=== PATIENT | male | born 1945 | race Caucasian/White ===

== ENCOUNTER → 2017-04-16 | Outpatient (REF) | payer MEDICARE ==
[2017-04-16 12:16] LABS: ALBUMIN 3.4 GM/DL (3.2-5.2); ALBUMIN/GLOBULIN RATIO 1.21 (1.00-1.93); ALKALINE PHOSPHATASE 57 U/L (45-117); ALT/SGPT 18 U/L (12-78); ANION GAP 8 MEQ/L (8-16); AST/SGOT 14 U/L (15-37); BILIRUBIN,TOTAL 0.5 MG/DL (0.2-1.0); BLOOD UREA NITROGEN 12 MG/DL (7-18); CALCIUM LEVEL 8.9 MG/DL (8.8-10.2); CARBON DIOXIDE LEVEL 28 MEQ/L (21-32); CHLORIDE LEVEL 109 MEQ/L (98-107); CHOLESTEROL LEVEL 193 MG/DL (<200); CREATININE FOR GFR 0.96 MG/DL (0.70-1.30); GLOMERULAR FILTRATION RATE > 60.0 (>42); GLUCOSE, FASTING 90 MG/DL (83-110); POTASSIUM SERUM 4.4 MEQ/L (3.5-5.1); SODIUM LEVEL 145 MEQ/L (136-145); TOTAL PROTEIN 6.2 GM/DL (6.4-8.2); TRIGLYCERIDES LEVEL 92 MG/DL (<150)
== END ==
LOC: M SFHCCLAY 07:08
PROVIDERS: ATTEND Family Medicine
DX: E78.2 Mixed hyperlipidemia (principal); Z12.5 Encounter for screening for malignant neoplasm of prostate
CPT/HCPCS: 80053; 80061; G0103

== ENCOUNTER → 2017-11-10 | Outpatient (REF) | payer MEDICARE ==
[2017-11-10 11:33] LABS: BASO % 0.4 % (0.0-1.0); EOS # 0.2 10^3/uL (0.0-0.50); HEMATOCRIT 41.6 % (42.0-52.0); HEMOGLOBIN 13.4 g/dl (14.0-18.0); IMMATURE GRANULOCYTE % 0.2 % (0-3.0); LYMPH # 0.9 10^3/uL (1.5-4.5); LYMPH % 10.9 % (24.0-44.0); MEAN CORPUSCULAR HEMOGLOBIN 28.9 pg (27.0-33.0); MEAN CORPUSCULAR HGB CONC 32.2 g/dl (32.0-36.5); MEAN CORPUSCULAR VOLUME 89.7 fl (80.0-96.0); MONO # 0.7 10^3/uL (0.0-0.8); MONO % 8.9 % (0.0-5.0); NEUTROPHILS # 6.3 10^3/uL (1.8-7.7); NEUTROPHILS % 77.6 % (36.0-66.0); PLATELET COUNT, AUTOMATED 319 10^3/uL (150-450); RED BLOOD COUNT 4.64 10^6/uL (4.30-6.10); RED CELL DISTRIBUTION WIDTH 12.5 % (11.5-14.5); WHITE BLOOD COUNT 8.1 10^3/uL (4.0-10.0)
[2017-11-10 11:51] LABS: ALBUMIN 3.1 GM/DL (3.2-5.2); ALKALINE PHOSPHATASE 77 U/L (45-117); ALT/SGPT 16 U/L (12-78); ANION GAP 5 MEQ/L (8-16); AST/SGOT 13 U/L (7-37); BILIRUBIN,TOTAL 0.5 MG/DL (0.2-1.0); BLOOD UREA NITROGEN 13 MG/DL (7-18); C REACTIVE PROTEIN QUANTITATIV 2.81 MG/DL (0.00-0.30); CALCIUM LEVEL 9.1 MG/DL (8.8-10.2); CARBON DIOXIDE LEVEL 31 MEQ/L (21-32); CHLORIDE LEVEL 107 MEQ/L (98-107); CREATININE FOR GFR 1.05 MG/DL (0.70-1.30); GLOMERULAR FILTRATION RATE > 60.0 (>42); GLUCOSE, FASTING 90 MG/DL (70-100); POTASSIUM SERUM 4.5 MEQ/L (3.5-5.1); RHEUMATOID FACTOR QUANT < 10.0 IU/ML (<15.0); SODIUM LEVEL 143 MEQ/L (136-145); TOTAL PROTEIN 6.2 GM/DL (6.4-8.2)
[2017-11-10 12:06] LABS: ERYTHROCYTE SEDIMENTATION RATE 42 mm/hr (0-20)
[2017-11-11 14:13] LABS: ANTINUCLEAR ANTIBODIES DIRECT Negative (Negative)
== END ==
LOC: M SFHCCLAY 07:44
DX: M25.50 Pain in unspecified joint (principal)
CPT/HCPCS: 80053

== ENCOUNTER 2017-11-25 16:56 | Inpatient (IN) | payer MEDICARE ==
[2017-11-25] MEDS: MORPHINE 2 MG/ML 1ML SYRINGE (J2270) IV ×2 (19:48→22:00)
[2017-11-25] MEDS: ONDANSETRON 4MG/2ML VIAL (J2405) IV (19:48)
[2017-11-25 20:05] LABS: BASO % 0.2 % (0.0-1.0); EOS # 0.2 10^3/uL (0.0-0.50); EOS % 1.7 % (0.0-3.0); HEMATOCRIT 40.7 % (42.0-52.0); HEMOGLOBIN 13.8 g/dl (13.5-17.5); IMMATURE GRANULOCYTE % 0.3 % (0-3.0); LYMPH # 1.5 10^3/uL (1.5-4.5); MEAN CORPUSCULAR HEMOGLOBIN 29.6 pg (27.0-33.0); MEAN CORPUSCULAR HGB CONC 33.9 g/dl (32.0-36.5); MEAN CORPUSCULAR VOLUME 87.3 fl (80.0-96.0); MONO # 0.9 10^3/uL (0.0-0.8); MONO % 9.3 % (0.0-5.0); NEUTROPHILS # 7.3 10^3/uL (1.8-7.7); NEUTROPHILS % 73.5 % (36.0-66.0); PLATELET COUNT, AUTOMATED 256 10^3/uL (150-450); RED BLOOD COUNT 4.66 10^6/uL (4.30-6.10); RED CELL DISTRIBUTION WIDTH 12.7 % (11.5-14.5)
[2017-11-25 20:39] LABS: ERYTHROCYTE SEDIMENTATION RATE 43 mm/hr (0-20)
[2017-11-25 20:52] LABS: ANION GAP 6 MEQ/L (8-16); BLOOD UREA NITROGEN 10 MG/DL (7-18); C REACTIVE PROTEIN QUANTITATIV 6.29 MG/DL (0.00-0.30); CALCIUM LEVEL 8.7 MG/DL (8.8-10.2); CARBON DIOXIDE LEVEL 27 MEQ/L (21-32); CHLORIDE LEVEL 109 MEQ/L (98-107); CREATININE FOR GFR 0.83 MG/DL (0.70-1.30); GLOMERULAR FILTRATION RATE > 60.0 (>42); GLUCOSE, FASTING 106 MG/DL (70-100); POTASSIUM SERUM 4.1 MEQ/L (3.5-5.1); SODIUM LEVEL 142 MEQ/L (136-145)
[2017-11-25] MEDS ORDERED: ISOVUE-370 76% 100ML VIAL (Q9967) As Ordered (21:23)
[2017-11-25] MEDS: NS 1,000 ML IV (23:35)
[2017-11-25 23:37] LABS: INR 1.11; PROTHROMBIN TIME 14.5 SECONDS (12.4-14.5)
[2017-11-25] MEDS ORDERED: ONDANSETRON 4 MG TAB (S0181) PO (23:45)
[2017-11-26 00:27] LABS: HEMATOCRIT 40.7 % (42.0-52.0); HEMOGLOBIN 13.5 g/dl (13.5-17.5)
[2017-11-26 04:45] LABS: HEMATOCRIT 39.8 % (42.0-52.0)
[2017-11-26 06:45] LABS: BASO % 0.2 % (0.0-1.0); EOS # 0.2 10^3/uL (0.0-0.50); HEMATOCRIT 38.2 % (42.0-52.0); HEMOGLOBIN 12.6 g/dl (13.5-17.5); IMMATURE GRANULOCYTE % 0.4 % (0-3.0); MEAN CORPUSCULAR HEMOGLOBIN 28.8 pg (27.0-33.0); MEAN CORPUSCULAR VOLUME 87.2 fl (80.0-96.0); MONO # 0.8 10^3/uL (0.0-0.8); MONO % 9.9 % (0.0-5.0); NEUTROPHILS # 6.3 10^3/uL (1.8-7.7); NEUTROPHILS % 75.5 % (36.0-66.0); PLATELET COUNT, AUTOMATED 240 10^3/uL (150-450); RED BLOOD COUNT 4.38 10^6/uL (4.30-6.10); RED CELL DISTRIBUTION WIDTH 12.6 % (11.5-14.5); WHITE BLOOD COUNT 8.3 10^3/uL (4.0-10.0)
[2017-11-26 06:59] LABS: ANION GAP 2 MEQ/L (8-16); BLOOD UREA NITROGEN 11 MG/DL (7-18); CALCIUM LEVEL 8.5 MG/DL (8.8-10.2); CARBON DIOXIDE LEVEL 30 MEQ/L (21-32); CHLORIDE LEVEL 106 MEQ/L (98-107); CREATININE FOR GFR 0.86 MG/DL (0.70-1.30); GLOMERULAR FILTRATION RATE > 60.0 (>42); GLUCOSE, FASTING 99 MG/DL (70-100); POTASSIUM SERUM 4.1 MEQ/L (3.5-5.1); SODIUM LEVEL 138 MEQ/L (136-145)
[2017-11-26 07:08] LABS: ERYTHROCYTE SEDIMENTATION RATE 41 mm/hr (0-20)
[2017-11-26] MEDS: NS 1,000 ML IV ×2 (09:40→19:35)
[2017-11-26 09:41] LABS: HEMATOCRIT 37.7 % (42.0-52.0); HEMOGLOBIN 12.4 g/dl (13.5-17.5)
[2017-11-26] MEDS ORDERED: ISOVUE-300 61% 50ML VIAL (Q9967) As Ordered (11:04)
[2017-11-26] MEDS ORDERED: HEPARIN 1,000 UNITS/ML 10ML VIAL (FOR RADIOLOGY& DIALYSIS ONLY) As Ordered (11:04)
[2017-11-26] MEDS ORDERED: fentaNYL 100 MCG/2 ML INJECTION (J3010) As Ordered ×2 (11:20→11:40)
[2017-11-26] MEDS ORDERED: MIDAZOLAM INJ 2 MG/2 ML VIAL (J2250) As Ordered ×2 (11:21→11:41)
[2017-11-26 14:01] LABS: HEMATOCRIT 39.4 % (42.0-52.0); HEMOGLOBIN 12.6 g/dl (13.5-17.5)
[2017-11-26 18:25] LABS: HEMOGLOBIN 12.4 g/dl (13.5-17.5)
[2017-11-26] MEDS: MORPHINE 4 MG/ML 1ML VIAL/SYRINGE (J2270) IV ×2 (20:09→23:42)
[2017-11-26 22:27] LABS: HEMATOCRIT 36.1 % (42.0-52.0); HEMOGLOBIN 11.7 g/dl (13.5-17.5)
[2017-11-27] MEDS: PERCOCET 5MG/325MG TAB PO ×5 (03:00→20:33)
[2017-11-27 03:04] LABS: BASO % 0.2 % (0.0-1.0); EOS # 0.2 10^3/uL (0.0-0.50); EOS % 2.6 % (0.0-3.0); HEMATOCRIT 38.9 % (42.0-52.0); HEMOGLOBIN 12.6 g/dl (13.5-17.5); IMMATURE GRANULOCYTE % 0.3 % (0-3.0); LYMPH # 1.6 10^3/uL (1.5-4.5); MEAN CORPUSCULAR HEMOGLOBIN 28.5 pg (27.0-33.0); MEAN CORPUSCULAR HGB CONC 32.4 g/dl (32.0-36.5); MONO # 0.9 10^3/uL (0.0-0.8); MONO % 10.5 % (0.0-5.0); NEUTROPHILS # 5.8 10^3/uL (1.8-7.7); NEUTROPHILS % 67.4 % (36.0-66.0); PLATELET COUNT, AUTOMATED 222 10^3/uL (150-450); RED BLOOD COUNT 4.42 10^6/uL (4.30-6.10); RED CELL DISTRIBUTION WIDTH 12.7 % (11.5-14.5); WHITE BLOOD COUNT 8.6 10^3/uL (4.0-10.0)
[2017-11-27 03:33] LABS: ANION GAP 4 MEQ/L (8-16); BLOOD UREA NITROGEN 16 MG/DL (7-18); CALCIUM LEVEL 8.4 MG/DL (8.8-10.2); CARBON DIOXIDE LEVEL 29 MEQ/L (21-32); CHLORIDE LEVEL 108 MEQ/L (98-107); CREATININE FOR GFR 0.93 MG/DL (0.70-1.30); GLOMERULAR FILTRATION RATE > 60.0 (>42); GLUCOSE, FASTING 93 MG/DL (70-100); SODIUM LEVEL 141 MEQ/L (136-145)
[2017-11-27 04:38] LABS: ERYTHROCYTE SEDIMENTATION RATE 20 mm/hr (0-20)
[2017-11-27] MEDS: NS 1,000 ML IV (05:35)
[2017-11-27] MEDS: MORPHINE 4 MG/ML 1ML VIAL/SYRINGE (J2270) IV ×4 (06:33→13:06)
[2017-11-27] MEDS ORDERED: PROHANCE 279.3MG/ML 15ML VIAL (A9576) As Ordered (12:19)
[2017-11-27] MEDS: DOCUSATE SODIUM 100 MG CAP PO (20:34)
[2017-11-28 00:21] LABS: Lyme Disease IgG/IgM Antibodie <0.91 ISR (0.00-0.90); Lyme Disease IgM Ab Quantitati <0.80 index (0.00-0.79)
[2017-11-28] MEDS: PERCOCET 5MG/325MG TAB PO ×5 (05:32→23:54)
[2017-11-28 06:11] LABS: BASO % 0.2 % (0.0-1.0); EOS # 0.2 10^3/uL (0.0-0.50); EOS % 2.9 % (0.0-3.0); HEMATOCRIT 37.9 % (42.0-52.0); HEMOGLOBIN 12.4 g/dl (13.5-17.5); IMMATURE GRANULOCYTE % 0.4 % (0-3.0); LYMPH # 1.3 10^3/uL (1.5-4.5); LYMPH % 15.9 % (24.0-44.0); MEAN CORPUSCULAR HEMOGLOBIN 29.2 pg (27.0-33.0); MEAN CORPUSCULAR HGB CONC 32.7 g/dl (32.0-36.5); MEAN CORPUSCULAR VOLUME 89.2 fl (80.0-96.0); MONO # 0.8 10^3/uL (0.0-0.8); MONO % 10.2 % (0.0-5.0); NEUTROPHILS # 5.7 10^3/uL (1.8-7.7); NEUTROPHILS % 70.4 % (36.0-66.0); PLATELET COUNT, AUTOMATED 246 10^3/uL (150-450); RED BLOOD COUNT 4.25 10^6/uL (4.30-6.10); RED CELL DISTRIBUTION WIDTH 12.6 % (11.5-14.5); WHITE BLOOD COUNT 8.1 10^3/uL (4.0-10.0)
[2017-11-28 06:33] LABS: ANION GAP 5 MEQ/L (8-16); BLOOD UREA NITROGEN 15 MG/DL (7-18); CALCIUM LEVEL 8.4 MG/DL (8.8-10.2); CARBON DIOXIDE LEVEL 30 MEQ/L (21-32); CHLORIDE LEVEL 107 MEQ/L (98-107); CREATININE FOR GFR 0.85 MG/DL (0.70-1.30); GLOMERULAR FILTRATION RATE > 60.0 (>42); GLUCOSE, FASTING 91 MG/DL (70-100); POTASSIUM SERUM 3.9 MEQ/L (3.5-5.1); SODIUM LEVEL 142 MEQ/L (136-145)
[2017-11-28 07:09] LABS: ERYTHROCYTE SEDIMENTATION RATE 63 mm/hr (0-20)
[2017-11-28] MEDS ORDERED: ISOVUE-370 76% 100ML VIAL (Q9967) As Ordered (07:48)
[2017-11-28 10:17] LABS: ALPHA FETOPROTEIN TUMOR QUANT < 1.3 NG/ML (<8.1)
[2017-11-28 10:18] LABS: LDH LACTATE DEHYDROGENASE 114 U/L (87-241)
[2017-11-28] MEDS: DOCUSATE SODIUM 100 MG CAP PO ×2 (10:29→20:54)
[2017-11-28] MEDS ORDERED: LIDOCAINE 1% MDV 20ML VIAL As Ordered (13:56)
[2017-11-28] MEDS ORDERED: SLF 3 ML SYR IV (15:30)
[2017-11-28] MEDS: SLF 3 ML SYR IV (20:54)
[2017-11-28] MEDS: MORPHINE 4 MG/ML 1ML VIAL/SYRINGE (J2270) IV (23:36)
[2017-11-29] MEDS: MORPHINE 4 MG/ML 1ML VIAL/SYRINGE (J2270) IV (02:45)
[2017-11-29 04:56] LABS: BASO % 0.1 % (0.0-1.0); EOS # 0.2 10^3/uL (0.0-0.50); EOS % 2.6 % (0.0-3.0); HEMATOCRIT 34.8 % (42.0-52.0); HEMOGLOBIN 11.4 g/dl (13.5-17.5); IMMATURE GRANULOCYTE % 0.3 % (0-3.0); LYMPH % 13.5 % (24.0-44.0); MEAN CORPUSCULAR HEMOGLOBIN 28.4 pg (27.0-33.0); MEAN CORPUSCULAR HGB CONC 32.8 g/dl (32.0-36.5); MEAN CORPUSCULAR VOLUME 86.6 fl (80.0-96.0); MONO # 0.7 10^3/uL (0.0-0.8); MONO % 9.3 % (0.0-5.0); NEUTROPHILS # 5.3 10^3/uL (1.8-7.7); NEUTROPHILS % 74.2 % (36.0-66.0); PLATELET COUNT, AUTOMATED 251 10^3/uL (150-450); RED BLOOD COUNT 4.02 10^6/uL (4.30-6.10); RED CELL DISTRIBUTION WIDTH 12.4 % (11.5-14.5); WHITE BLOOD COUNT 7.2 10^3/uL (4.0-10.0)
[2017-11-29 05:16] LABS: ANION GAP 6 MEQ/L (8-16); BLOOD UREA NITROGEN 10 MG/DL (7-18); CALCIUM LEVEL 8.2 MG/DL (8.8-10.2); CARBON DIOXIDE LEVEL 28 MEQ/L (21-32); CHLORIDE LEVEL 108 MEQ/L (98-107); GLOMERULAR FILTRATION RATE > 60.0 (>42); GLUCOSE, FASTING 100 MG/DL (70-100); POTASSIUM SERUM 3.7 MEQ/L (3.5-5.1); SODIUM LEVEL 142 MEQ/L (136-145)
[2017-11-29 05:44] LABS: ERYTHROCYTE SEDIMENTATION RATE 52 mm/hr (0-20)
[2017-11-29] MEDS: SLF 3 ML SYR IV ×2 (06:00→12:27)
[2017-11-29] MEDS: PERCOCET 5MG/325MG TAB PO ×2 (06:34→10:28)
[2017-11-29] MEDS: DOCUSATE SODIUM 100 MG CAP PO (08:21)
[2017-11-29] MEDS ORDERED: BISACODYL 10 MG SUPP PR (11:30)
[2017-11-29] MEDS: ACETAMINOPHEN TAB 650MG DOSE (2X325MG) PO (13:30)
[2017-11-29 14:11] LABS: HCG SERUM TUMOR MARKER QUANT < 1 mIU/mL (0-3)
== END 2017-11-29 13:35 | disposition home or self-care (01) | DRG 843 ==
LOC: M PCU 11-26 16:45 → M ED 16:56 → M ED INP 22:39
PROC: B41DYZZ Fluoroscopy of Aorta and Bilateral Lower Extremity Arteries using Other Contrast (ICD-10-PCS; 2017-11-26)
PROC: B41CYZZ Fluoroscopy of Pelvic Arteries using Other Contrast (ICD-10-PCS; 2017-11-26)
PROC: 0WBH3ZX Excision of Retroperitoneum, Percutaneous Approach, Diagnostic (ICD-10-PCS; principal; 2017-11-28)
DX: C48.0 Malignant neoplasm of retroperitoneum (principal); K66.1 Hemoperitoneum; Z79.899 Other long term (current) drug therapy; Z88.0 Allergy status to penicillin; Z91.040 Latex allergy status; Z79.82 Long term (current) use of aspirin; Z85.038 Personal history of other malignant neoplasm of large intestine; Z91.018 Allergy to other foods

== ENCOUNTER → 2018-06-10 | Outpatient (REF) | payer MEDICARE ==
[2018-06-10 17:27] LABS: BASO % 0.5 % (0.0-1.0); EOS # 0.1 10^3/uL (0.0-0.50); EOS % 2.3 % (0.0-3.0); HEMATOCRIT 42.7 % (42.0-52.0); HEMOGLOBIN 13.7 g/dl (13.5-17.5); IMMATURE GRANULOCYTE % 0.2 % (0-3.0); LYMPH # 0.4 10^3/uL (1.5-4.5); LYMPH % 9.2 % (24.0-44.0); MEAN CORPUSCULAR HEMOGLOBIN 29.5 pg (27.0-33.0); MEAN CORPUSCULAR HGB CONC 32.1 g/dl (32.0-36.5); MONO # 0.4 10^3/uL (0.0-0.8); NEUTROPHILS # 3.5 10^3/uL (1.8-7.7); NEUTROPHILS % 79.8 % (36.0-66.0); PLATELET COUNT, AUTOMATED 221 10^3/uL (150-450); RED BLOOD COUNT 4.64 10^6/uL (4.30-6.10); RED CELL DISTRIBUTION WIDTH 13.5 % (11.5-14.5); WHITE BLOOD COUNT 4.4 10^3/uL (4.0-10.0)
[2018-06-10 17:33] LABS: ANION GAP 5 MEQ/L (8-16); BLOOD UREA NITROGEN 11 MG/DL (7-18); CALCIUM LEVEL 9.1 MG/DL (8.8-10.2); CARBON DIOXIDE LEVEL 30 MEQ/L (21-32); CHLORIDE LEVEL 105 MEQ/L (98-107); CREATININE FOR GFR 0.85 MG/DL (0.70-1.30); GLOMERULAR FILTRATION RATE > 60.0 (>42); GLUCOSE, FASTING 97 MG/DL (70-100); POTASSIUM SERUM 4.5 MEQ/L (3.5-5.1); SODIUM LEVEL 140 MEQ/L (136-145)
== END ==
LOC: M LABDRAWC 10:21
DX: R19.00 Intra-abdominal and pelvic swelling, mass and lump, unspecified site (principal)
CPT/HCPCS: 80048

== ENCOUNTER → 2018-10-30 | Outpatient (REF) | payer MEDICARE ==
[~2018-10-30] MED LIST: ASPI325T PO; BISA10SU PR; COLA100C5 PO; PERCOCET PO; TYLE500T78 PO
[2018-10-30 13:50] LABS: BLOOD UREA NITROGEN 14 MG/DL (7-18); CREATININE FOR GFR 0.96 MG/DL (0.70-1.30); GLOMERULAR FILTRATION RATE > 60.0 (>42)
== END ==
LOC: M LABDRAWC 12:25
PROVIDERS: ATTEND Surgery
DX: R19.00 Intra-abdominal and pelvic swelling, mass and lump, unspecified site (principal); C49.9 Malignant neoplasm of connective and soft tissue, unspecified

== ENCOUNTER → 2018-12-11 | Outpatient (REF) | payer MEDICARE ==
[~2018-12-11] MED LIST changes: +ASPI-1 PO; -ASPI325T PO
[2018-12-11 11:40] LABS: BLOOD UREA NITROGEN 12 MG/DL (7-18); CREATININE FOR GFR 0.89 MG/DL (0.70-1.30); GLOMERULAR FILTRATION RATE > 60.0 (>42)
== END ==
LOC: M LABDRAWC 11:05
PROVIDERS: ATTEND Orthopaedic Surgery
DX: M25.461 Effusion, right knee (principal)

== ENCOUNTER → 2019-04-05 | Outpatient (REF) | payer MEDICARE ==
[2019-04-05 11:41] LABS: BLOOD UREA NITROGEN 12 MG/DL (7-18); GLOMERULAR FILTRATION RATE > 60.0 (>42)
== END ==
LOC: M LABDRAWC 11:21
PROVIDERS: ATTEND Surgery
DX: R19.00 Intra-abdominal and pelvic swelling, mass and lump, unspecified site (principal)

== ENCOUNTER → 2019-10-28 | Outpatient (REF) | payer MEDICARE ==
[2019-10-28 13:09] LABS: BLOOD UREA NITROGEN 14 MG/DL (7-18); CREATININE FOR GFR 1.02 MG/DL (0.70-1.30); GLOMERULAR FILTRATION RATE > 60.0 (>42)
== END ==
LOC: M LABDRAWC 11:26
PROVIDERS: ATTEND Surgery
DX: C49.9 Malignant neoplasm of connective and soft tissue, unspecified (principal); R19.00 Intra-abdominal and pelvic swelling, mass and lump, unspecified site

== ENCOUNTER → 2020-05-05 | Outpatient (REF) | payer MEDICARE ==
[2020-05-05 14:38] LABS: BLOOD UREA NITROGEN 11 MG/DL (7-18); CREATININE FOR GFR 0.98 MG/DL (0.70-1.30); GLOMERULAR FILTRATION RATE > 60.0 (>42)
== END ==
LOC: M LABDRAWC 11:57
PROVIDERS: ATTEND Surgery
DX: R19.00 Intra-abdominal and pelvic swelling, mass and lump, unspecified site (principal)

== ENCOUNTER → 2020-12-22 | Outpatient (CLI) | payer MEDICARE ==
[~2020-12-22] MED LIST changes: +GASTROGRAFIN SOLUTION 30ML (Q9963) As Ordered ONE; +ISOVUE-370 76% 100ML VIAL As Ordered ONE
--- NOTE | 2020-12-22 17:54 | REP ---
INDICATION: MAL MICHA OF ABD. COMPARISON: 11/25/2017 the only prior TECHNIQUE: Standard helical technique after the intravenous administration of 100 cc Isovue 370 and oral bowel preparatory contrast administration FINDINGS: There are a few scattered low-density lesions in the liver likely tiny cysts or focal fatty deposits. There are no enhancing hepatic lesions. The gallbladder, spleen, pancreas, adrenal glands, and kidneys are within normal limits. The abdominal aorta and para-aortic regions are within normal limits. There is in for a renal abdominal aortic focal ectasias without aneurysmal dilatation. This is essentially unchanged compared to the prior exam. The bowel loops and the mesenteries are within normal limits. Previously present large right psoas muscle mass has been surgically excised. There is no evidence of residual mass or abnormal paraspinal enhancement. There is no free fluid or free air. Postsurgical changes seen along the right lateral abdominal wall. Bone window technique throughout the exam shows no significant change in appearance of the imaged osseous structures. IMPRESSION: There is no evidence of acute or recurrent disease. Findings as described above. <Electronically signed by Marcus Sky > 12/22/20 [id number]
--- NOTE | 2020-12-22 17:57 | REP ---
INDICATION: MAL MICHA OF ABD COMPARISON: 11/28/2017 the latest prior TECHNIQUE: Standard helical technique after the intravenous administration of 100 cc Isovue 370. FINDINGS: There is no mediastinal or hilar adenopathy. There are no pleural or pericardial effusions. The imaged osseous structures are essentially unchanged. Evaluation of the lung meier shows no new abnormal nodules, masses, or opacities. A few scattered areas of fibrosis and/or subsegmental atelectatic change is again suspected status quo. IMPRESSION: No acute intrathoracic disease. No significant change from the prior exam. <Electronically signed by Marcus Sky > 12/22/20 1206
== END ==
LOC: M RAD 15:51
PROVIDERS: ATTEND Surgery
DX: R19.00 Intra-abdominal and pelvic swelling, mass and lump, unspecified site (principal); C76.2 Malignant neoplasm of abdomen
CPT/HCPCS: 71260; 74177; Q9963; Q9967

== ENCOUNTER → 2021-05-30 | Outpatient (REF) | payer MEDICARE ==
[~2021-05-30] MED LIST changes: +ASPI81CH8 PO; +CALCD50TA PO; -GASTROGRAFIN SOLUTION 30ML (Q9963) As Ordered ONE; +IBUP200C28 PO; -ISOVUE-370 76% 100ML VIAL As Ordered ONE
[2021-05-30 16:55] LABS: BLOOD UREA NITROGEN 15 MG/DL (7-18); CREATININE FOR GFR 1.03 MG/DL (0.70-1.30); GLOMERULAR FILTRATION RATE > 60.0 (>42)
== END ==
LOC: M LABDRAWC 15:46
PROVIDERS: ATTEND Surgery
DX: R19.00 Intra-abdominal and pelvic swelling, mass and lump, unspecified site (principal); C76.2 Malignant neoplasm of abdomen
CPT/HCPCS: 36415; 82565; 84520; 90682; 90732; G0008; G0009; G0463

== ENCOUNTER 2021-06-16 21:52 | Inpatient (IN) | payer MEDICARE ==
[~2021-06-16] VITALS: Ht 167.6 cm; Wt 69.5 kg
[~2021-06-16 21:52] MED LIST changes: -ASPI81CH8 PO; -CALCD50TA PO; -IBUP200C28 PO
[2021-06-16] MEDS ORDERED: IBUP200C28 PO (22:02)
--- NOTE | 2021-06-16 23:34 | REPVR ---
PROCEDURE INFORMATION: Exam: XR Right Knee Exam date and time: 06/16/2021 10:59 PM Age: 76 years old Clinical indication: Other: Patient fell; Additional info: Fell striking right knee TECHNIQUE: Imaging protocol: XR Right knee. Views: 4 or more views. COMPARISON: No relevant prior studies available. FINDINGS: Bones/joints: Osteopenia. Distracted avulsion fracture from the lower pole of the patella which is by approximately 14 mm. Soft tissues: Soft tissue swelling and hematoma about the anterior aspect of the patella and knee. IMPRESSION: 1. Distracted avulsion fracture from the lower pole of the patella which is distracted approximately 14 mm. 2. Soft tissue swelling and hematoma about the anterior aspect of the patella and knee. 3. Osteopenia. Electronically signed by: Tyler Bhatti On 06/16/2021 23:33:26 PM
--- NOTE | 2021-06-16 23:36 | REPVR ---
PROCEDURE INFORMATION: Exam: XR Right Femur Exam date and time: 06/16/2021 11:08 PM Age: 76 years old Clinical indication: Pain; Knee; Right; Additional info: Fall TECHNIQUE: Imaging protocol: XR Right femur. Views: 2 views. COMPARISON: CR Knee, complete RIGHT 06/16/2021 10:53 PM FINDINGS: Bones/joints: Osteopenia. No femoral fracture. Distracted fracture from the lower pole of the patella. Soft tissues: Soft tissue swelling and hematoma about the anterior aspect of the knee. IMPRESSION: 1. Osteopenia. 2. Distracted fracture from the lower pole of the patella with adjacent soft tissue swelling and hematoma about the anterior aspect of the knee. 3. Otherwise negative right femur. Electronically signed by: Tyler Bhatti On 06/16/2021 23:35:28 PM
--- NOTE | 2021-06-16 23:37 | REPVR ---
PROCEDURE INFORMATION: Exam: XR Right Tibia and Fibula Exam date and time: 06/16/2021 11:08 PM Age: 76 years old Clinical indication: Pain; Knee; Right; Additional info: Fall TECHNIQUE: Imaging protocol: XR Right tibia and fibula. Views: 2 views. COMPARISON: CR Knee, complete RIGHT 06/16/2021 10:53 PM FINDINGS: Bones/joints: Osteopenia. Distracted fracture from the lower pole of the patella. The tibia and fibula are intact. Soft tissues: Soft tissue swelling and hematoma anterior to the knee. IMPRESSION: 1. Distracted fracture from the lower pole of the patella with adjacent anterior soft tissue swelling and hematoma. 2. Osteopenia. 3. Otherwise negative right tibia and fibula. Electronically signed by: Tyler Bhatti On 06/16/2021 23:36:31 PM
--- NOTE | 2021-06-17 00:16 | REPVR ---
PROCEDURE INFORMATION: Exam: CT Right Lower Extremity Without Contrast, Knee Exam date and time: 06/16/2021 11:59 PM Age: 76 years old Clinical indication: Injury or trauma; Fall; Fracture, traumatic; Displaced; Patella or knee; Right; Additional info: 3d recon, fall patellar fracture TECHNIQUE: Imaging protocol: CT of the Right lower extremity without contrast was performed. Exam focused on the knee. Radiation optimization: All CT scans at this facility use at least one of these dose optimization techniques: automated exposure control; mA and/or kV adjustment per patient size (includes targeted exams where dose is matched to clinical indication); or iterative reconstruction. COMPARISON: CR Knee, complete RIGHT 06/16/2021 10:53 PM FINDINGS: Bones/joints: Distracted fracture from the lower pole of the patella which is distracted approximately 15 mm. The cruciate ligaments are intact. The medial collateral ligament appears to be intact. No fractures of the femur, tibia or fibula are noted. Trace joint effusion. Soft tissues: Subcutaneous confluence around the anterior aspect of the knee which may reflect hemorrhagic infiltration and hematoma. IMPRESSION: 1. Distracted fracture from the lower pole of the patella which is distracted approximately 15 mm. 2. Subcutaneous infiltration and confluence about the anterior aspect of the knee which may reflect hematoma and hemorrhagic infiltration. 3. Trace joint effusion. 4. Otherwise negative CT right knee. Electronically signed by: Tyler Bhatti On 06/17/2021 00:16:03 AM
--- NOTE | 2021-06-17 00:56 | HPEPDOC ---
[facility] Medical History & Physical Date of Admission Jun 17, 2021 Date of Service: Jun 17, 2021 Primary Care Physician: JARROD DEL VALLE DO Attending Physician: SHERRI VERMA MD History and Physical TIME OF SERVICE: 120AM CHIEF COMPLAINT: knee pain HISTORY OF PRESENT ILLNESS: , a 76 yr old M, received his 3rd dose of Modernas COVID 19 vaccine on Friday; shortly thereafter he developed left leg pain and weakness. As a result of the weakness he spent most of the last few days in bed. Despite having a poor appetite he has been forcing himself to eat. He denies having n/v/d, dizziness or chest pain. Yesterday he felt a bit stronger so he tried to get up and walk but was still weak. His left leg buckled out from underneath him and as a result he fell down onto his right knee. He came to the hospital because his daughters insisted he come in for evaluation. He was found to have a right closed patellar fracture and declined CT of the head to r/o CVA. At the time of my evaluation he denied having severe knee pain. REVIEW OF SYSTEMS: 10-point review of systems negative except as listed in HPI PAST MEDICAL/ SURGICAL HISTORY: osteopenia, history of colon cancer in remission, history of right pelvis sarcoma (diagnosed in 2018 in remission), bilateral cataract surgery, tonsillectomy, left arm surgery FAMILY HISTORY: Alcohol abuse SOCIAL HISTORY: He doesnt smoke, he has a history of alcohol dependence and quit drinking in May of 1984 ALLERGIES: Please see below. HOME MEDICATIONS: Please see below. PHYSICAL EXAMINATION: Vital Signs Date Time Temp Pulse Resp B/P (MAP) Pulse Ox O2 Delivery O2 Flow Rate FiO2 06/16/21 21:53 96.8 58 18 135/60 (85) 99 Room Air GENERAL APPEARANCE: well-nourished and developed/ NAD HEENT: EOMI / MMM&P CARDIOVASCULAR: RRR/NMRG LUNGS: CTAB on RA ABDOMEN: contour flat MUSCULOSKELETAL: NCAT / right knee swollen INTEGUMENT: he is not flushed pale or diaphoretic NEUROLOGICAL: CN 2-12 grossly intact / speech not dysarthric PSYCHIATRIC: A&O / able to understand and follow all commands LABORATORY DATA: 06/16/21 00:55 IMAGING: Right Knee xray IMPRESSION: 1. Distracted avulsion fracture from the lower pole of the patella which is distracted approximately 14 mm. 2. Soft tissue swelling and hematoma about the anterior aspect of the patella and knee. 3. Osteopenia. Right Femur xray IMPRESSION: 1. Osteopenia. 2. Distracted fracture from the lower pole of the patella with adjacent soft tissue swelling and hematoma about the anterior aspect of the knee. 3. Otherwise negative right femur. Right Tib/Fib xray IMPRESSION: 1. Distracted fracture from the lower pole of the patella with adjacent anterior soft tissue swelling and hematoma. 2. Osteopenia. 3. Otherwise negative right tibia and fibula. Right knee CT IMPRESSION: 1. Distracted fracture from the lower pole of the patella which is distracted approximately 15 mm. 2. Subcutaneous infiltration and confluence about the anterior aspect of the knee which may reflect hematoma and hemorrhagic infiltration. 3. Trace joint effusion. 4. Otherwise negative CT right knee. MICROBIOLOGY: COVID 19 neg ASSESSMENT: is a 76 yr old M w a hx of osteopenia & right pelvis sarcoma who is admitted for a right closed patellar fracture. PLAN: 1 Right Patellar Fracture 2/2 mechanical fall Plan: NPO after midnight w D5NS and FSBS q6H / Ortho consult / PT consult / pain control w Morphine w stool softeners/ his RCRI score is 0, the only additional testing he will need prior to proceeding with surgery is to check his pro-BNP 2 Osteopenia -suspect he may have Osteoporosis Plan: f/u Ca and Vitamin D / OscaL D / he can f/u with his PCP for a DEXA Scan 3 Hx of Pelvis Sarcoma Plan: he is scheduled for PET? CT on Friday DVT px w SCDs Disposition: ARU vs home after more than 2 midnights stay Home Medications Scheduled PRN Ibuprofen (Ibuprofen) 200 Mg Capsule, 600 MG PO Q8H PRN for MODERATE PAIN Allergies Coded Allergies: Penicillins (Verified Allergy, Unknown, HIVES, 06/17/21) corn (Verified Allergy, Unknown, 06/17/21) A-FIB/CHADSVASC A-FIB History Current/History of A-Fib/PAF?: No Current PO Anticoag Therapy: No SHERRI VERMA MD Jun 17, 2021 00:56
[2021-06-17] MEDS ORDERED: MORPHINE 2 MG/ML 1ML VIAL (J2270) IV PRN (01:00)
[2021-06-17] MEDS ORDERED: HOME MED LIST COMPLETE! XX SCH (01:00)
[2021-06-17] MEDS ORDERED: MAALOX 30 ML SUSP *UDC PO PRN (01:00)
[2021-06-17] MEDS ORDERED: MOM 30ML SUSPENSION UDC PO PRN (01:00)
[2021-06-17 01:31] LABS: BASO % 0.4 % (0.0-1.0); EOS # 0.2 10^3/uL (0.0-0.5); EOS % 2.6 % (0.0-3.0); HEMATOCRIT 46.3 % (42.0-52.0); HEMOGLOBIN 14.9 g/dl (13.5-17.5); LYMPH # 0.8 10^3/uL (1.5-5.0); MEAN CORPUSCULAR HEMOGLOBIN 30.5 pg (27.0-33.0); MEAN CORPUSCULAR HGB CONC 32.2 g/dl (32.0-36.5); MEAN CORPUSCULAR VOLUME 94.9 fl (80.0-96.0); MONO # 0.8 10^3/uL (0.0-0.8); MONO % 8.9 % (2.0-8.0); NEUTROPHILS # 6.7 10^3/uL (1.5-8.5); NEUTROPHILS % 78.6 % (36.0-66.0); PLATELET COUNT, AUTOMATED 215 10^3/uL (150-450); RED BLOOD COUNT 4.88 10^6/uL (4.30-6.10); WHITE BLOOD COUNT 8.5 10^3/uL (4.0-10.0)
[2021-06-17 01:48] LABS: INR 0.99; PROTHROMBIN TIME 13.5 SECONDS (12.7-14.5)
[2021-06-17 01:49] LABS: PARTIAL THROMBOPLASTIN TIME 28.7 SECONDS (25.9-37.0)
[2021-06-17 01:51] LABS: ALBUMIN 3.3 GM/DL (3.2-5.2); ALT/SGPT 19 U/L (12-78); BILIRUBIN,DIRECT 0.2 MG/DL (0.0-0.2); BILIRUBIN,TOTAL 0.6 MG/DL (0.2-1.0); BLOOD UREA NITROGEN 17 MG/DL (7-18); CARBON DIOXIDE LEVEL 30 MEQ/L (21-32); CHLORIDE LEVEL 107 MEQ/L (98-107); CK-MB VALUE MASS 1.1 NG/ML (<3.6); CPK CREATINE PHOSPHOKINASE 23 U/L (39-308); CREATININE FOR GFR 0.95 MG/DL (0.70-1.30); GLOMERULAR FILTRATION RATE > 60.0 (>42); GLUCOSE, FASTING 102 MG/DL (70-100); MB/CK RELATIVE INDEX 4.78 (< OR =4); SODIUM LEVEL 141 MEQ/L (136-145); TOTAL PROTEIN 6.1 GM/DL (6.4-8.2); TROPONIN I < 0.02 NG/ML (< 0.10)
[2021-06-17] MEDS: D5W/0.9% SODIUM CHLORIDE 1,000 ML IV SCH ×2 (06:41→16:34)
[2021-06-17 06:58] LABS: HEMATOCRIT 40.9 % (42.0-52.0); HEMOGLOBIN 13.3 g/dl (13.5-17.5); MEAN CORPUSCULAR HEMOGLOBIN 30.5 pg (27.0-33.0); MEAN CORPUSCULAR HGB CONC 32.5 g/dl (32.0-36.5); MEAN CORPUSCULAR VOLUME 93.8 fl (80.0-96.0); PLATELET COUNT, AUTOMATED 185 10^3/uL (150-450); RED BLOOD COUNT 4.36 10^6/uL (4.30-6.10); WHITE BLOOD COUNT 6.5 10^3/uL (4.0-10.0)
[2021-06-17] MEDS ORDERED: fentaNYL 100 MCG/2 ML INJECTION (J3010) IV PRN ×2 (07:01→13:05)
[2021-06-17] MEDS ORDERED: MIDAZOLAM INJ 2MG/2ML VIAL (J2250 PER 1MG) IV PRN (07:01)
[2021-06-17 08:10] LABS: BLOOD UREA NITROGEN 16 MG/DL (7-18); CALCIUM LEVEL 8.5 MG/DL (8.8-10.2); CARBON DIOXIDE LEVEL 30 MEQ/L (21-32); CHLORIDE LEVEL 109 MEQ/L (98-107); CREATININE FOR GFR 0.84 MG/DL (0.70-1.30); GLOMERULAR FILTRATION RATE > 60.0 (>42); GLUCOSE, FASTING 101 MG/DL (70-100); NT-PRO BNP 158 PG/ML (<450); POTASSIUM SERUM 3.9 MEQ/L (3.5-5.1); SODIUM LEVEL 142 MEQ/L (136-145)
--- NOTE | 2021-06-17 08:56 | IPNPDOC ---
Text Note Date of Service The patient was seen on 06/17/21. NOTE SUBJECTIVE: -No acute events overnight, pending going to the OR shortly OBJECTIVE: GENERAL APPEARANCE: well-nourished and developed/ NAD HEENT: NCAT, EOMI, MMM CARDIOVASCULAR: RRR, no m/r/g LUNGS: CTAB, breathing comfortably on RA ABDOMEN: Normoactive bowel sounds, soft, NTND MUSCULOSKELETAL: NCAT, swollen right knee as noted prior NEUROLOGICAL: CN 3-12 grossly intact, speech not dysarthric PSYCHIATRIC: A&Ox3 LABORATORY DATA: Reviewed WBC 6.5 hgb 13.3 platelets 185 Cr 0.84 INR 0.99 na 142 K 3.9 proBNP 158 IMAGING: Right Knee xray IMPRESSION: 1. Distracted avulsion fracture from the lower pole of the patella which is distracted approximately 14 mm. 2. Soft tissue swelling and hematoma about the anterior aspect of the patella and knee. 3. Osteopenia. Right Femur xray IMPRESSION: 1. Osteopenia. 2. Distracted fracture from the lower pole of the patella with adjacent soft tissue swelling and hematoma about the anterior aspect of the knee. 3. Otherwise negative right femur. Right Tib/Fib xray IMPRESSION: 1. Distracted fracture from the lower pole of the patella with adjacent anterior soft tissue swelling and hematoma. 2. Osteopenia. 3. Otherwise negative right tibia and fibula. Right knee CT IMPRESSION: 1. Distracted fracture from the lower pole of the patella which is distracted approximately 15 mm. 2. Subcutaneous infiltration and confluence about the anterior aspect of the knee which may reflect hematoma and hemorrhagic infiltration. 3. Trace joint effusion. 4. Otherwise negative CT right knee. MICROBIOLOGY: COVID 19 neg ASSESSMENT: 76 yr old M w a hx of osteopenia & right pelvis sarcoma in remission, who is admitted for a right closed patellar fracture. PLAN: Preop evaluation: -CBC within normal limits without anemia -Renal function at baseline within normal limits -Euvolemic with proBNP within normal limits and breathing comfortably -EKG without evidence of acute ischemia -his RCRI score is 0 At this time, he is medically cleared for orthopedic surgery. - Right Patellar Fracture 2/2 mechanical fall -NPO after midnight w D5NS and FSBS q6H -Ortho consulted, taking him to the OR shortly -PT/OT consult psot surgery per ortho -Currently, pain control w Morphine IV w stool softeners Osteopenia -suspect he may have Osteoporosis -f/u Ca and Vitamin D / OscaL D / he can f/u with his PCP for a DEXA Scan Hx of Pelvis Sarcoma -he is scheduled for PET? CT on Friday. may need rescheduling if still inpatient. DVT px w SCDs Disposition: Will need PT/OT post surgery for safe discharge planning VS,Fishbone, I+O VS, Fishbone, I+O Laboratory Tests 06/17/21 06:30 06/17/21 07:34 Vital Signs Date Time Temp Pulse Resp B/P (MAP) Pulse Ox O2 Delivery O2 Flow Rate FiO2 06/17/21 06:45 98.3 52 16 115/65 (82) 97 Room Air KATHRYN HOWELL MD Jun 17, 2021 08:56
[2021-06-17] MEDS ORDERED: ceFAZolin 2 GM/D5W 50 ML IV BAG (J0690 PER 500MG) As Ordered ONE (09:18)
[2021-06-17] MEDS ORDERED: LIDOCAINE 2% 100MG/5ML SDV (FOR ANES.) As Ordered ONE (09:37)
[2021-06-17] MEDS ORDERED: propofoL 200 MG/20 ML VIAL As Ordered ONE (09:37)
[2021-06-17] MEDS ORDERED: fentaNYL 100 MCG/2 ML INJECTION (J3010) As Ordered ONE ×2 (09:37→11:26)
[2021-06-17] MEDS ORDERED: MIDAZOLAM INJ 2MG/2ML VIAL (J2250 PER 1MG) As Ordered ONE (09:37)
[2021-06-17] MEDS ORDERED: ONDANSETRON 4MG/2ML VIAL As Ordered ONE (09:47)
[2021-06-17] MEDS ORDERED: METOCLOPRAMIDE INJ 10MG/2ML VIAL (J2765 PER 1) As Ordered ONE (09:47)
[2021-06-17] MEDS ORDERED: TRANEXAMIC ACID 100 MG/ML 10ML VIAL As Ordered ONE ×2 (09:48→10:19)
--- NOTE | 2021-06-17 09:51 | CR ---
CONSULTATION DATE: 06/17/2021 TIME: 2 a.m. SURGEON CONSULTED: Jorge Leggett MD CONSULTED SERVICE: Orthopedic Surgery. HISTORY OF PRESENT ILLNESS: This is a 76-year-old male with a right inferior pole closed, displaced patellar fracture after a ground-level fall onto his right knee. The patient states that after his third dose of Moderna COVID-19 vaccine four days prior that he felt weak. The patient had been in bed for a few days, got up to use to the restroom and sustained the aforementioned injury. Given the displacement, orthopedic surgery was consulted for the aforementioned injury and given the displacement, the patient was indicated for surgery. PAST MEDICAL HISTORY: 1. Osteopenia. 2. History of colon cancer in remission. 3. History of right pelvic sarcoma diagnosed in 2018 in remission. 4. Bilateral cataract surgery. 5. Tonsillectomy. 6. Left arm surgery. FAMILY HISTORY: Alcohol abuse. SOCIAL HISTORY: Nonsmoker, history of alcohol dependence, quit drinking in 1983. ALLERGIES: Patient says he does not like penicillin but denies allergic allergy with further questioning. HOME MEDICATIONS: Please see the hospitalist's note. REVIEW OF SYSTEMS: A 14 point review of systems was negative unless otherwise described in the HPI above. PHYSICAL EXAMINATION: The patient is alert and oriented to person, time and place. Right knee: The patient has significant swelling overlying the patient's patella with a palpable gap in the inferior pole of the patella of the right patella. He had a 4-5 strength with a straight leg raise with a 10-20 degree extensor lag. The patient had no breaks in the skin, otherwise neurovascularly intact to the right lower extremity with 5/5 motor strength to the EHL, FHL, tibialis anterior, gastrocnemius and peroneal musculature. He had sensation intact to light touch to the deep and superficial peroneal, sural, saphenous and tibial nerves distributions. Brisk capillary refill to the digits, palpable dorsalis pedis and posterior tibialis anterior pulse. RADIOGRAPHS: Demonstrate displaced distal third inferior pole patellar fracture. The displacement was approximately 15 mm. This was oblique in nature. CT scan demonstrates the same stated above without any comminution. IMPRESSION: A 76-year-old male with a right displaced patellar inferior third pole fracture which is closed in nature requiring open reduction and internal fixation. PLAN: At this point in time the patient will undergo the aforementioned surgery with a right patella open reduction and internal fixation with screws and possible star plate. This is in order to close the fracture site and help the patient achieve 5/5 extension strength and full ambulation capabilities. Given the fact that he is a previous community ambulator, works around the [employer]) and is a relatively healthy, active male, I feel that open reduction and internal fixation of the patella is the best option given the patient's previous ambulatory status. The patient was indicated for the aforementioned surgery, underwent COVID testing, has been NPO since midnight and will undergo a right patella open reduction and internal fixation this morning.
[2021-06-17] MEDS ORDERED: ePHEDrine SULFATE 25 MG/5 ML(5MG/ML) SYRINGE As Ordered ONE ×2 (09:52→10:40)
[2021-06-17] MEDS ORDERED: ACETAMINOPHEN 1000MG 100ML IV BTL (OFIRMEV) (J0131 PER 10MG) As Ordered ONE (10:15)
[2021-06-17] MEDS ORDERED: VANCOMYCIN 1000MG/20ML VIAL As Ordered ONE (11:36)
[2021-06-17] MEDS ORDERED: ROPIvacaine 0.5% 30ML INJECTION (J2795 PER 1MG) XX ONE (12:05)
[2021-06-17] MEDS ORDERED: dexameTHASONE 10MG/1ML VIAL PRES.FREE (J1100 PER 1MG) XX ONE (12:05)
[2021-06-17] MEDS ORDERED: LIDOCAINE 1% MDV 20ML VIAL XX ONE (12:05)
[2021-06-17] MEDS ORDERED: oxyCODONE 5MG TAB PO PRN (13:05)
[2021-06-17] MEDS ORDERED: LR 1,000 ML IV SCH (13:05)
[2021-06-17] MEDS ORDERED: ONDANSETRON 4MG/2ML VIAL IV PRN (13:05)
--- NOTE | 2021-06-17 14:10 | RO ---
OPERATIVE NOTE DATE OF OPERATION: 06/17/2021 TIME: 10 a.m. PREOPERATIVE DIAGNOSIS: Right patella fracture, distal third, closed. POSTOPERATIVE DIAGNOSIS: Right patella fracture, distal third, closed. NAME OF OPERATION: Right patella open reduction and internal fixation. SURGEON: Jorge Leggett MD HOME ASSESSMENT NURSE: None. SUPERVISING ATTENDING: Jorge Leggett MD FINDINGS: The patient had a distal 1/3 inferior pole patella fracture. INDICATIONS: This was a 76-year-old male who sustained a ground-level fall after losing his balance at home, falling onto his right knee. He sustained the aforementioned injury. Given the amount of displacement of the inferior pole of the patella, he was indicated for open reduction and internal fixation in order to facilitate healing of the fractured patella. ANESTHESIA: GETA. TOURNIQUET TIME: 120 minutes. ESTIMATED BLOOD LOSS: 30 mL. IV FLUIDS: Please see anesthesia report. IV ANTIBIOTICS: 2 gm of Ancef. IMPLANTS: Synthes. CULTURES: None. SPECIMENS: None. DESCRIPTION OF PROCEDURE: The patient was met in the preoperative holding area where the patient's operative extremity was signed, the patient's consent was confirmed to be correct, and the patient's identity was confirmed to be correct. The patient was then transported to the operating theater where he was placed in a supine position on a radiolucent flat-top surgical table with a bone foam under his right lower extremity. A safety strap secured the patient to the bed. All bony prominences were well padded. The contralateral lower extremity had an SCD placed. A timeout was called which confirmed the correct patient, correct operative extremity and correct consent. All staff were in agreement. The case began by obtaining a fluoroscopic imaging on the AP and lateral views in order to sarah the location of the fracture. I then marked out the anterior longitudinal skin incision overlying the patient's patella measuring approximately 4 inches in length. We then inflated the tourniquet to 250 mmHg. I incised the skin sharply, then maintained meticulous hemostasis as I made my way to the periosteum of the patella. I incised the paratenon on the patellar tendon. This was reflected medial and lateral. I made skin flaps in order to better visualize the fracture. I then incised the periosteum in a longitudinal fashion over the fracture inferior 1/3 aspect of the patella. I then lifted the periosteum from the patella in order to further identify the fracture. I then removed hematoma from the fracture and appreciated approximately 15 mm of diastasis between the inferior pole fractured fragment from the proximal fragment. I then carefully cleaned the cortical edges in order to help the provisional reduction. I then clamped the fracture from an anterior to posterior position given the oblique nature of the fracture. I then obtained fluoroscopic imaging demonstrating that I was satisfied with the fracture reduction, fluoroscopy as well as the cortical read on the anterior aspect of the patella. I then removed the [id number]-[id number] bone-reducing clamp, placed a star plate into position and then reclamped the fracture site. I used two cortical screws in order to compress the plate to the bone through the star plate. I then turned my attention to the distal fragment. I then secured four locking screws through this fragment with secure fixation. After this was achieved, I then placed seven locking screws within the proximal fragment to ensure good plate fixation of the proximal fragment of the patella. During the entirety of this time, the [id number] bone-reducing clamp remained in place, providing compression through the fracture. I then removed the uvzwf-uu-mawio bone-reducing clamp and obtained fluoroscopic imaging with an AP and lateral view to ensure that our screw lengths were not penetrating the articular surface of the patella. They were secure and the fracture was reduced. Of note, I did customize this plate using a template prior to plate insertion and I did trim the plate to fit the fracture morphology, removing the extensions on the plate. This completed the surgical procedure. I copiously irrigated the surgical site using three liters normal saline. I placed 1 gm of vancomycin powder on the plate. I closed the minimal retinacular damage using a 2-0 braided polyethylene suture. I closed the patellar tendon and paratenon using an 0 Vicryl suture. I closed the periosteum over the plate using a 2-0 braided polyethyelene suture. I then closed the deep dermal layer using a 2-0 Vicryl and closed the skin using a running 3-0 nylon suture. The surgical incision was then dressed with Xeroform and followed by 4x4 gauze, Webril and Shiv bandage and the patient's right lower extremity was placed in a well-padded knee immobilizer brace. The patient's leg was placed in a brace in full extension. The patient was then extubated without complication, transported to the postanesthesia care unit. At this point in time, the patient will follow the patella open reduction and internal fixation rehabilitative protocol with physical therapy after a two week postoperative visit. The patient will follow on June 26, [address] Leggett, myself for a postoperative wound check. I will then initiate the patella open reduction and internal fixation rehabilitative protocol. The patient will be given pain medications per the hospitalist team and received a block by anesthesia. I do recommend the patient receive 81 mg of aspirin starting on postop day one or the equivalent for 30 days once daily.
[2021-06-17 15:02] VITALS: BP 150/68
[2021-06-17 15:30] VITALS: BP 146/67
[2021-06-17 16:30] VITALS: BP 147/68
[2021-06-17] MEDS: CALCIUM/VITAMIN D 500 MG TAB PO SCH ×2 (16:34→20:28)
[2021-06-17] MEDS: DOCUSATE SODIUM 100MG CAPSULE PO SCH ×2 (16:34→20:28)
--- NOTE | 2021-06-17 19:42 | REP ---
INDICATION: RIGHT PATELLA FRACTURE. COMPARISON: None. TECHNIQUE: Ten fluoroscopic images were obtained using a portable C-arm device during patellar ORIF. FINDINGS: The previously described patellar fracture has been openly reduced and internally fixed. The alignment appears near anatomical. 81.3 seconds of fluoroscopy time was provided for the exam. IMPRESSION: As above. <Electronically signed by Marcus Sky > 06/17/218
[2021-06-18 02:00] VITALS: BP 127/62
--- NOTE | 2021-06-18 05:41 | ECGEPIP ---
[facility] - ED Test Date: 2021-06-17 Pat Name: DREA SARGENT Department: Room: [place] [address] Gender: Male Heel Attacher: PAZ : 1945 Requested By: SHARMILA Macias PA-C Order Number: [id number] Reading MD: Rc Colon Measurements Intervals [place] Rate: 53 P: 53 SC: 258 QRS: 34 QRSD: 110 T: 33 QT: 398 QTc: 373 Interpretive Statements Sinus bradycardia with 1st degree AV block Nonspecific T wave abnormality NO PRIORS FOR COMPARISON Electronically Signed on 06-18-2021 5:41:10 EDT by Rc Colon
[2021-06-18 05:54] LABS: HEMATOCRIT 39.4 % (42.0-52.0); HEMOGLOBIN 13.1 g/dl (13.5-17.5); MEAN CORPUSCULAR HGB CONC 33.2 g/dl (32.0-36.5); MEAN CORPUSCULAR VOLUME 93.1 fl (80.0-96.0); PLATELET COUNT, AUTOMATED 208 10^3/uL (150-450); RED BLOOD COUNT 4.23 10^6/uL (4.30-6.10); WHITE BLOOD COUNT 12.7 10^3/uL (4.0-10.0)
[2021-06-18 06:00] VITALS: BP 117/49
[2021-06-18 06:08] LABS: BLOOD UREA NITROGEN 16 MG/DL (7-18); CALCIUM LEVEL 9.3 MG/DL (8.8-10.2); CARBON DIOXIDE LEVEL 27 MEQ/L (21-32); CHLORIDE LEVEL 108 MEQ/L (98-107); CREATININE FOR GFR 0.96 MG/DL (0.70-1.30); GLOMERULAR FILTRATION RATE > 60.0 (>42); GLUCOSE, FASTING 121 MG/DL (70-100); SODIUM LEVEL 140 MEQ/L (136-145)
[2021-06-18] MEDS: CALCIUM/VITAMIN D 500 MG TAB PO SCH ×2 (09:07→21:23)
[2021-06-18] MEDS: DOCUSATE SODIUM 100MG CAPSULE PO SCH ×2 (09:07→21:22)
[2021-06-18] MEDS: ASPIRIN 81 MG CHEW TABLET PO SCH (11:28)
--- NOTE | 2021-06-18 13:29 | IPNPDOC ---
Text Note Date of Service The patient was seen on 06/18/21. NOTE SUBJECTIVE: -No acute events overnight -s/p surgery, went well OBJECTIVE: GENERAL APPEARANCE: well-nourished and developed/ NAD HEENT: NCAT, EOMI, MMM CARDIOVASCULAR: RRR, no m/r/g LUNGS: CTAB, breathing comfortably on RA ABDOMEN: Normoactive bowel sounds, soft, NTND MUSCULOSKELETAL: NCAT, R knee now in postop rosemarie bandage and has leg brace on NEUROLOGICAL: CN 3-12 grossly intact, speech not dysarthric PSYCHIATRIC: A&Ox3 LABORATORY DATA: Reviewed IMAGING: Right Knee xray IMPRESSION: 1. Distracted avulsion fracture from the lower pole of the patella which is distracted approximately 14 mm. 2. Soft tissue swelling and hematoma about the anterior aspect of the patella and knee. 3. Osteopenia. Right Femur xray IMPRESSION: 1. Osteopenia. 2. Distracted fracture from the lower pole of the patella with adjacent soft tissue swelling and hematoma about the anterior aspect of the knee. 3. Otherwise negative right femur. Right Tib/Fib xray IMPRESSION: 1. Distracted fracture from the lower pole of the patella with adjacent anterior soft tissue swelling and hematoma. 2. Osteopenia. 3. Otherwise negative right tibia and fibula. Right knee CT IMPRESSION: 1. Distracted fracture from the lower pole of the patella which is distracted approximately 15 mm. 2. Subcutaneous infiltration and confluence about the anterior aspect of the knee which may reflect hematoma and hemorrhagic infiltration. 3. Trace joint effusion. 4. Otherwise negative CT right knee. MICROBIOLOGY: COVID 19 neg ASSESSMENT: 76 yr old M w a hx of osteopenia & right pelvis sarcoma in [facility], who is admitted for a right closed patellar fracture. PLAN: Right Patellar Fracture 2/2 mechanical fall -s/p Right patella open reduction and internal fixation by Dr. Leggett on 06/17 -PT/OT consult , recs per ortho -pain control w Percocet PRN on scale -ASA 81 daily for DVT ppx per ortho Osteopenia -suspect he may have Osteoporosis -f/u Ca and Vitamin D / OscaL D / he can f/u with his PCP for a DEXA Scan Hx of Pelvis Sarcoma -he is scheduled for PET? CT on Friday. may need rescheduling if still inpatient. DVT px w SCDs Disposition: PT/OT. ARU screening VS,Nickbone, I+O VS, Nickbone, I+O Laboratory Tests 06/18/21 05:31 Vital Signs Date Time Temp Pulse Resp B/P (MAP) Pulse Ox O2 Delivery O2 Flow Rate FiO2 06/18/21 06:00 98.5 74 20 117/49 (71) 96 Room Air I&O- Last 24 Hours up to 6 AM 06/18/21 06:00 Intake Total 3085 ml Output Total 1155 ml Balance 1930 ml KATHRYN HOWELL MD Jun 18, 2021 11:34
[2021-06-18] MEDS ORDERED: PERCOCET 5MG/325MG TAB PO PRN (13:30)
[2021-06-18 14:00] VITALS: BP 128/62
[2021-06-18 20:32] VITALS: BP 133/79
[2021-06-19] MEDS: PERCOCET 5MG/325MG TAB PO PRN ×2 (01:24→09:53)
[2021-06-19 05:32] VITALS: BP 106/53
[2021-06-19] MEDS ORDERED: CALCD50TA PO (08:51)
[2021-06-19] MEDS ORDERED: COLA100C5 PO (08:51)
[2021-06-19] MEDS ORDERED: ASPI81CH8 PO (08:51)
[2021-06-19] MEDS ORDERED: PERCOCET PO (08:51)
[2021-06-19] MEDS: ASPIRIN 81 MG CHEW TABLET PO SCH (09:52)
[2021-06-19] MEDS: DOCUSATE SODIUM 100MG CAPSULE PO SCH (09:52)
[2021-06-19] MEDS: CALCIUM/VITAMIN D 500 MG TAB PO SCH (09:52)
--- NOTE | 2021-06-19 13:36 | DS.PDOC ---
Discharge Summary General Date of Admission Jun 17, 2021 at 00:45 Date of Discharge 06/19/2021 Attending Physician: KATHRYN HOWELL MD Discharge Summary PROCEDURES PERFORMED DURING STAY: s/p Right patella open reduction and internal fixation by Dr. Leggett on 06/17 ADMITTING DIAGNOSES: Distracted avulsion fracture from the lower pole of the patella which is distracted approximately 14 mm. DISCHARGE DIAGNOSES: Distracted avulsion fracture from the lower pole of the patella which is distracted approximately 14 mm. Soft tissue swelling and hematoma about the anterior aspect of the patella and knee. Osteopenia history of colon cancer in remission history of right pelvis sarcoma (diagnosed in 2018 in remission) with pending surveillance imaging on 06/19/2021 COMPLICATIONS/CHIEF COMPLAINT: Right Patella Fracture. HISTORY OF PRESENT ILLNESS: 76 yr old M who received his 3rd dose of Modernas COVID 19 vaccine and shortly thereafter he developed left leg pain and weakness and as a result of the weakness he spent most of the next few days in bed and he tried to get active, he got up and his left leg buckled out from underneath him and as a result he fell down onto his right knee. He came to the hospital because his daughters insisted he come in for evaluation. He was found to have a right closed patellar fracture and declined CT of the head to r/o CVA. HOSPITAL COURSE: On evaluation he was hemodynamically stable and afebrile. He was found to have a distracted avulsion fracture from the lower pole of the R patella which was distracted approximately 14 mm and had associated soft tissue swelling and hematoma about the anterior aspect of the patella and knee w/ osteopenia. He had a Right patella open reduction and internal fixation by Dr. Leggett on 06/17 without complications. He was seen by PT/OT on 06/18 and did well with his mobility and they discussed that he would do well at home provided he had sufficient support, given that he lives alone, and if not, would benefit from a short stay in ARU. I spoke with the daughter and she is planning to stay with him ermelinda-discharge at his residence and we decided that he would be safe to discharge home with daughter with the advantage that he would be able to make it to his oncology surveillance imaging appointment late this morning. He is therefore being discharged home and we will offer home services for potential home PT. DISCHARGE MEDICATIONS: Please see below. ALLERGIES: Please see below. PHYSICAL EXAMINATION ON DISCHARGE: VITAL SIGNS: Please see below. GENERAL APPEARANCE: well-nourished and developed, NAD HEENT: NCAT, EOMI, MMM CARDIOVASCULAR: RRR, no m/r/g LUNGS: CTAB, breathing comfortably on RA ABDOMEN: Normoactive bowel sounds, soft, NTND MUSCULOSKELETAL: NCAT, R knee in rosemarie bandage and has leg brace on NEUROLOGICAL: CN 3-12 grossly intact, speech not dysarthric PSYCHIATRIC: A&Ox3 LABORATORY DATA: Please see below IMAGING: Right Knee xray IMPRESSION: 1. Distracted avulsion fracture from the lower pole of the patella which is distracted approximately 14 mm. 2. Soft tissue swelling and hematoma about the anterior aspect of the patella and knee. 3. Osteopenia. Right Femur xray IMPRESSION: 1. Osteopenia. 2. Distracted fracture from the lower pole of the patella with adjacent soft tissue swelling and hematoma about the anterior aspect of the knee. 3. Otherwise negative right femur. Right Tib/Fib xray IMPRESSION: 1. Distracted fracture from the lower pole of the patella with adjacent anterior soft tissue swelling and hematoma. 2. Osteopenia. 3. Otherwise negative right tibia and fibula. Right knee CT IMPRESSION: 1. Distracted fracture from the lower pole of the patella which is distracted approximately 15 mm. 2. Subcutaneous infiltration and confluence about the anterior aspect of the knee which may reflect hematoma and hemorrhagic infiltration. 3. Trace joint effusion. 4. Otherwise negative CT right knee. LABORATORY DATA: Please see below. PROGNOSIS: Good ACTIVITY: As tolerated DIET: regular DISCHARGE PLAN: Home with daughter, ASA 81 daily for 30d, pecorcet PRN for pain, close ortho follow up within 1 week, PCP within 1 week. Onc and associated imaging per outpatient plan. DISPOSITION: Home w/ services DISCHARGE INSTRUCTIONS: Home with daughter, ASA 81 daily for 30d, pecorcet PRN for pain, close ortho fol low up within 1 week, PCP within 1 week. Onc and associated imaging per outpatient plan. ITEMS TO FOLLOWUP ON ON OUTPATIENT: Patellar fracture, ortho follow up Oncology follow up PCP follow up DISCHARGE CONDITION: Stable TIME SPENT ON DISCHARGE: 46 minutes. Vital Signs/I&Os Vital Signs Date Time Temp Pulse Resp B/P (MAP) Pulse Ox O2 Delivery O2 Flow Rate FiO2 11/2/21 05:32 97.6 59 18 106/53 (70) 97 Room Air I&O- Last 24 Hours up to 6 AM 06/19/21 06:00 Intake Total 1680 ml Output Total 2325 ml Balance -645 ml Discharge Medications Scheduled Aspirin (Children's Aspirin) 81 Mg Tab.chew, 81 MG PO DAILY Calcium/Vitamin D (Calcium 500-Vit D3 200 Tablet) 1 Each Tablet, 1,000 MG PO BID Docusate Sodium (Colace) 100 Mg Capsule, 100 MG PO BID Scheduled PRN Ibuprofen (Ibuprofen) 200 Mg Capsule, 600 MG PO Q8H PRN for MODERATE PAIN, (Reported) Oxycodone/Acetaminophen (Oxycodone-Acetaminophen 5-325) 1 Each Tablet, 1 TAB PO Q6HP PRN for MODERATE PAIN (PS 5-7) Allergies Coded Allergies: Penicillins (Verified Allergy, Unknown, HIVES, 06/17/21) corn (Verified Allergy, Unknown, 06/17/21) KATHRYN HOWELL MD Jun 19, 2021 09:07
== END 2021-06-19 11:30 | disposition home health service (06) | DRG 517 ==
LOC: M ED 21:52 → M ED INP 06-17 00:45 → M MS5PR 06-17 14:50
PROVIDERS: ADMIT Internal Medicine; ATTEND Internal Medicine
PROC: 0QSD04Z Reposition Right Patella with Internal Fixation Device, Open Approach (ICD-10-PCS; principal; 2021-06-17 08:30)
DX: S82.091A Other fracture of right patella, initial encounter for closed fracture (principal); M85.80 Other specified disorders of bone density and structure, unspecified site; S80.01XA Contusion of right knee, initial encounter; Z85.038 Personal history of other malignant neoplasm of large intestine; Z79.82 Long term (current) use of aspirin; Z79.899 Other long term (current) drug therapy; Z88.0 Allergy status to penicillin; Z91.018 Allergy to other foods; Z98.41 Cataract extraction status, right eye; Z98.42 Cataract extraction status, left eye; W18.30XA Fall on same level, unspecified, initial encounter; Y92.009 Unspecified place in unspecified non-institutional (private) residence as the place of occurrence of the external cause

== ENCOUNTER → 2021-06-19 | Outpatient (CLI) | payer MEDICARE ==
[~2021-06-19] MED LIST changes: +ASPI81CH8 PO; +CALCD50TA PO; +GASTROGRAFIN SOLUTION 30ML (Q9963) As Ordered ONE; +IBUP200C28 PO; +ISOVUE-370 76% 100ML VIAL As Ordered ONE
--- NOTE | 2021-06-19 15:55 | REP ---
INDICATION: MALIGNANT NEOPLASM. COMPARISON: 12/22/2020, 11/28/2017 TECHNIQUE: Bolus 100 mL Isovue 370 scanning through the chest with coronal and sagittal reconstructions. FINDINGS: The lung meier are well inflated. There is some linear fibrotic changes in the medial basal segment of both lower lobes another minor chronic fibrotic changes. There is some mild cylindrical bronchiectatic change peer I see no pleural effusion, parenchymal lung mass, pulmonary nodules, calcified pleural plaque or pleural based mass. No pneumothorax or pneumomediastinum. Tracheal airway intact heart is not grossly enlarged left atrium is prominent no pericardial thickening or effusion. The aorta is without aneurysm or dissection. It has calcifications at the arch and its descending portion. Pulmonary arteries are mildly prominent centrally tapering rapidly and consistent with pulmonary artery hypertension. There is no pathologic sized mediastinal, hilar, axillary or supraclavicular adenopathy. The bone windows show the sternum, manubrium, medial heads of the clavicles, visualized portions of scapulae and humeral heads, ribs and the thoracic spine with lower cervical and upper lumbar levels all intact without any acute compression fracture or destructive lesion. Marginal osteophytes are seen and thoracic kyphosis is unchanged. The upper abdomen shows liver with a few small hypodensities are stable and most consistent with small up attic cysts as seen on previous study please see the CT abdomen report for more detail. Adrenal glands intact. No hiatal hernia. IMPRESSION: 1. No CT evidence of intrathoracic metastatic disease a mass or new finding. There is evidence for COPD, some fibrotic change, mild cylindrical bronchiectatic change with all findings stable. 2. Heart and mediastinal contours intact. No aortic aneurysm or dissection. No adenopathy. Central pulmonary arteries prominent without filling defects. No bony acute findings. <Electronically signed by Quinton Mead > 06/19/21 [id number]
--- NOTE | 2021-06-19 16:20 | REP ---
INDICATION: MALIGNANT NEOPLASM OF ABDOMEN. COMPARISON: 12/22/2020, 11/25/2017. TECHNIQUE: CT abdomen and pelvis performed without IV contrast. CT abdomen pelvis performed with IV contrast as well, following intravenous administration of 100 cc of Isovue 370. Delayed images also performed. Sagittal, coronal and 3D MIP reconstruction images are performed. Oral Gastrografin mixture also used 10 mL in 290 mL of flavored water for 2 doses per our bowel contrast protocol. FINDINGS: Lung bases: Some minor basilar fibrotic change without acute finding. Liver: There are few small low-density lesions in the contrast and pre contrast study, the largest about a cm in size and by attenuation value consistent with cysts, these are stable. No solid hepatic mass or enhancing lesion. No hepatomegaly. Gallbladder: No calcified stone or mass. Spleen: No mass or enlargement. There is no ascites in the upper abdomen. Adrenals: Normal. Pancreas: Appears to have a duodenal diverticulum associated with it but without a solid mass or change in its appearance for 3 and half years. Nothing acute. Kidneys: No stone, hydronephrosis or solid mass. A tiny simple cyst upper pole on the right on delayed images, stable. Small and large bowel: Left colonic anastomosis again seen and unchanged. Moderate retained stool the abdominal portion of colon. Incidental note of lipomatous infiltration of the ileocecal valve, unchanged. No colitis, diverticulitis stricture or mass. Some scattered diverticulosis. Small bowel loops contrast filled without dilatation or adjacent inflammatory change in the mesentery. Free fluid: None. Adenopathy: None. Aorta: Some atherosclerotic calcifications without aneurysm or dissection. Iliac artery calcifications without aneurysm also noted. Appendix: Not inflamed. Osseous structures: On the sagittal reconstructions there is grade 1 superior endplate depression of the L3 vertebral body as a new finding since 12/22/2020. Bones are demineralized. Some facet arthropathy lower lumbar spine. The left paraspinal region shows ileo psoas muscle intact and unchanged. On the right side the ileo psoas is been resected and there is no evidence of recurrent mass or lesion in the surgical bed appearance is unchanged. No bony destructive changes in the adjacent right iliac wing. Sacral ala, foramina, SI joints, acetabula E and hips grossly intact Pelvis: No evidence of recurrence or mass in the iliopsoas bed on the right side. Bladder without wall thickening mass or stone no dilated distal ureters, ureteral or bladder stone. No ventral or inguinal hernia nor pathologic sized inguinal adenopathy. There are postsurgical changes and soft tissue fullness in the right groin anterior to the common femoral artery and vein. This appearance is stable the right side is normal. IMPRESSION: 1. A stable exam without evidence of recurrence or new retroperitoneal mass, adenopathy or bony destructive lesion. There is a new superior endplate L3 grade 1 compression deformity without malalignment. Central canal only marginally adequate at this level with a disc bulge and facet arthropathy with ligamentum flavum hypertrophy. However that central canal does not appear much changed since 12/22/2020. 2. No hepatic, mesenteric or other retroperitoneal evidence for metastatic disease or new lesion. 3. Stable right groin postsurgical changes and soft tissue density. 4. Right ileo psoas bed without recurrence mass or new lesion. <Electronically signed by Quinton Mead > 06/19/21 [id number]
== END ==
LOC: M RAD 11:37
PROVIDERS: ATTEND Surgery
DX: R19.00 Intra-abdominal and pelvic swelling, mass and lump, unspecified site (principal); C76.2 Malignant neoplasm of abdomen; J44.9 Chronic obstructive pulmonary disease, unspecified
CPT/HCPCS: 71260; 74178; Q9963; Q9967

== ENCOUNTER → 2021-06-26 | Outpatient (CLI) | payer MEDICARE ==
[~2021-06-26] MED LIST changes: -GASTROGRAFIN SOLUTION 30ML (Q9963) As Ordered ONE; -ISOVUE-370 76% 100ML VIAL As Ordered ONE
--- NOTE | 2021-06-26 17:07 | REP ---
INDICATION: SURGICAL AFTERCARE. COMPARISON: Preprocedural exam 06/16/2021 TECHNIQUE: AP and lateral FINDINGS: Status post patellar ORIF. The alignment is near anatomical. There is no acute osseous abnormality. IMPRESSION: As above <Electronically signed by Marcus Sky > 06/26/21 [id number]
== END ==
LOC: M SOG 08:49
PROVIDERS: ATTEND Orthopaedic Surgery
DX: Z48.89 Encounter for other specified surgical aftercare (principal)

== ENCOUNTER → 2021-10-30 | Outpatient (CLI) | payer MEDICARE | LOC: M SOG 08:37 | PROVIDERS: ATTEND Orthopaedic Surgery | DX: Z47.89 Encounter for other orthopedic aftercare (principal) ==

== ENCOUNTER → 2022-06-05 | Outpatient (REF) | payer MEDICARE ==
[2022-06-05 12:39] LABS: HEMATOCRIT 44.6 % (42.0-52.0); HEMOGLOBIN 14.3 g/dl (13.5-17.5); MEAN CORPUSCULAR HEMOGLOBIN 30.2 pg (27.0-33.0); MEAN CORPUSCULAR HGB CONC 32.1 g/dl (32.0-36.5); MEAN CORPUSCULAR VOLUME 94.1 fl (80.0-96.0); PLATELET COUNT, AUTOMATED 204 10^3/uL (150-450); RED BLOOD COUNT 4.74 10^6/uL (4.30-6.10); WHITE BLOOD COUNT 6.7 10^3/uL (4.0-10.0)
[2022-06-05 13:21] LABS: ALBUMIN 3.5 GM/DL (3.2-5.2); ALT/SGPT 19 U/L (12-78); BILIRUBIN,TOTAL 0.6 MG/DL (0.2-1.0); BLOOD UREA NITROGEN 16 MG/DL (7-18); CALCIUM LEVEL 9.1 MG/DL (8.8-10.2); CARBON DIOXIDE LEVEL 30 MEQ/L (21-32); CHLORIDE LEVEL 108 MEQ/L (98-107); CHOLESTEROL LEVEL 197 MG/DL (<200); CHOLESTEROL RISK RATIO 3.126 (<5); CREATININE FOR GFR 1.05 MG/DL (0.70-1.30); GLOMERULAR FILTRATION RATE > 60.0 (>42); GLUCOSE, FASTING 98 MG/DL (70-100); HDL CHOLESTEROL 63 MG/DL (>40); LDL CHOLESTEROL 118 MG/DL (<100); NON-HDL-C 134 MG/DL; POTASSIUM SERUM 4.3 MEQ/L (3.5-5.1); SODIUM LEVEL 141 MEQ/L (136-145); TOTAL PROTEIN 6.3 GM/DL (6.4-8.2); TRIGLYCERIDES LEVEL 79 MG/DL (<150)
== END ==
LOC: M SFHCCLAY 08:46
PROVIDERS: ATTEND Nurse Practitioner Family
DX: E78.2 Mixed hyperlipidemia (principal); Z85.038 Personal history of other malignant neoplasm of large intestine; C48.0 Malignant neoplasm of retroperitoneum; Z12.5 Encounter for screening for malignant neoplasm of prostate
CPT/HCPCS: 80053; 80061; 85027; G0103

== ENCOUNTER → 2022-08-20 | Outpatient (REF) | payer MEDICARE ==
[2022-08-20 11:46] LABS: HEMATOCRIT 39.9 % (42.0-52.0); HEMOGLOBIN 12.5 g/dl (13.5-17.5); MEAN CORPUSCULAR HEMOGLOBIN 28.5 pg (27.0-33.0); MEAN CORPUSCULAR HGB CONC 31.3 g/dl (32.0-36.5); MEAN CORPUSCULAR VOLUME 90.9 fl (80.0-96.0); PLATELET COUNT, AUTOMATED 343 10^3/uL (150-450); RED BLOOD COUNT 4.39 10^6/uL (4.30-6.10); WHITE BLOOD COUNT 8.2 10^3/uL (4.0-10.0)
[2022-08-20 12:09] LABS: ALBUMIN 2.4 G/DL (3.2-5.2); ALKALINE PHOSPHATASE 75 U/L (46-116); ALT/SGPT < 9 U/L (7.0-40); AST/SGOT 16 U/L (<34); BILIRUBIN,TOTAL 0.5 MG/DL (0.3-1.2); BLOOD UREA NITROGEN 13 MG/DL (9-23); CALCIUM LEVEL 8.7 MG/DL (8.3-10.6); CARBON DIOXIDE LEVEL 30 MMOL/L (20-31); CHLORIDE LEVEL 103 MMOL/L (98-107); CREATININE FOR GFR 1.08 MG/DL (0.70-1.30); GLOMERULAR FILTRATION RATE > 60.0 (>42); GLUCOSE, FASTING 104 MG/DL (74-106); POTASSIUM SERUM 4.6 MMOL/L (3.5-5.1); SODIUM LEVEL 139 MMOL/L (136-145)
[2022-08-20 12:11] LABS: TOTAL 25(OH) VITAMIN D 37.5 NG/ML (20.0-100.0)
== END ==
LOC: M SFHCCLAY 08:09
PROVIDERS: ATTEND Nurse Practitioner Family
DX: E78.2 Mixed hyperlipidemia (principal); E55.9 Vitamin D deficiency, unspecified; I21.4 Non-ST elevation (NSTEMI) myocardial infarction; Z79.899 Other long term (current) drug therapy

== ENCOUNTER → 2022-12-04 | Outpatient (REF) | payer MEDICARE ==
[~2022-12-04] MED LIST changes: +ALBU8.5H PO; +ASPI81CH48 PO; +ATOR40TA75 PO; +CLOP75TA2 PO; +HYDR-3713 PO; +METO1TAB32 PO; +MIRA3350 PO; +NITR0.4S14 SL
[2022-12-04 18:56] LABS: BLOOD UREA NITROGEN 19 MG/DL (9-23); CALCIUM LEVEL 8.4 MG/DL (8.3-10.6); CARBON DIOXIDE LEVEL 29 MMOL/L (20-31); CHLORIDE LEVEL 100 MMOL/L (98-107); GLOMERULAR FILTRATION RATE > 60.0 (>42); GLUCOSE, FASTING 116 MG/DL (74-106); POTASSIUM SERUM 3.7 MMOL/L (3.5-5.1); SODIUM LEVEL 135 MMOL/L (136-145)
== END ==
LOC: M SFHCCLAY 11:15
PROVIDERS: ATTEND Nurse Practitioner Family
DX: M25.551 Pain in right hip (principal)

== ENCOUNTER → 2022-12-04 | Outpatient (CLI) | payer MEDICARE | LOC: M CLY 11:25 | PROVIDERS: ATTEND Nurse Practitioner Family | DX: M85.851 Other specified disorders of bone density and structure, right thigh (principal) ==

== ENCOUNTER 2022-12-05 15:04 | Emergency (ER) | payer MEDICARE ==
[~2022-12-05] VITALS: Ht 170.2 cm; Wt 66.4 kg
[~2022-12-05 15:04] MED LIST changes: -ALBU8.5H PO; -ASPI81CH48 PO; -ATOR40TA75 PO; -CLOP75TA2 PO; -HYDR-3713 PO; -METO1TAB32 PO; -MIRA3350 PO; -NITR0.4S14 SL
[2022-12-05 16:05] LABS: BASO % 0.2 % (0.0-1.0); EOS % 0.2 % (0.0-3.0); HEMATOCRIT 39.2 % (42.0-52.0); HEMOGLOBIN 12.6 g/dl (13.5-17.5); LYMPH # 0.8 10^3/uL (1.5-5.0); LYMPH % 6.7 % (24.0-44.0); MEAN CORPUSCULAR HEMOGLOBIN 27.5 pg (27.0-33.0); MEAN CORPUSCULAR HGB CONC 32.1 g/dl (32.0-36.5); MEAN CORPUSCULAR VOLUME 85.6 fl (80.0-96.0); MONO # 0.8 10^3/uL (0.0-0.8); MONO % 6.8 % (2.0-8.0); NEUTROPHILS # 10.2 10^3/uL (1.5-8.5); NEUTROPHILS % 84.9 % (36.0-66.0); PLATELET COUNT, AUTOMATED 240 10^3/uL (150-450); RED BLOOD COUNT 4.58 10^6/uL (4.30-6.10)
[2022-12-05 16:14] LABS: ERYTHROCYTE SEDIMENTATION RATE 75 mm/hr (0-20)
[2022-12-05] MEDS ORDERED: NS 1,000 ML IV ONE (16:30)
[2022-12-05 16:37] LABS: BLOOD UREA NITROGEN 19 MG/DL (9-23); CALCIUM LEVEL 8.2 MG/DL (8.3-10.6); CARBON DIOXIDE LEVEL 27 MMOL/L (20-31); CHLORIDE LEVEL 99 MMOL/L (98-107); CREATININE FOR GFR 0.86 MG/DL (0.70-1.30); GLOMERULAR FILTRATION RATE > 60.0 (>42); GLUCOSE, FASTING 111 MG/DL (74-106); POTASSIUM SERUM 4.5 MMOL/L (3.5-5.1); SODIUM LEVEL 135 MMOL/L (136-145)
[2022-12-05] MEDS ORDERED: MORPHINE 2 MG/ML 1ML VIAL IV ONE (16:40)
[2022-12-05] MEDS ORDERED: ISOVUE-370 76% 100ML VIAL As Ordered ONE (16:47)
[2022-12-05] MEDS ORDERED: MORPHINE 4 MG/ML 1ML VIAL IV ONE (18:30)
[2022-12-05 18:34] VITALS: BP 152/69
[2022-12-05] MEDS ORDERED: HYDR-3713 PO (19:01)
[2022-12-05] MEDS ORDERED: MIRA3350 PO (19:01)
== END 2022-12-05 19:22 | disposition home or self-care (01) ==
LOC: M ED 15:04
DX: R22.41 Localized swelling, mass and lump, right lower limb (principal); M25.551 Pain in right hip; K57.92 Diverticulitis of intestine, part unspecified, without perforation or abscess without bleeding; M54.50 Low back pain, unspecified; Z88.0 Allergy status to penicillin; Z91.018 Allergy to other foods; Z79.82 Long term (current) use of aspirin; Z79.899 Other long term (current) drug therapy
CPT/HCPCS: 74177; 80048; 83605; 85025; 85652; 86140; 87040; 87486; 87581; 87633; 87798; 93971; 96374; 96375; 99284; Q9967

== ENCOUNTER 2022-12-15 16:17 | Inpatient (IN) | payer MEDICARE ==
[~2022-12-15] VITALS: Ht 167.6 cm; Wt 65.9 kg
[~2022-12-15 16:17] MED LIST changes: +HYDR-3713 PO; +MIRA3350 PO
[2022-12-15] MEDS ORDERED: ACETAMINOPHEN 500 MG TAB PO ONE (16:45)
[2022-12-15] MEDS ORDERED: NS 1,000 ML IV SCH (16:55)
[2022-12-15 17:43] LABS: BASO % 0.2 % (0.0-1.0); EOS % 0.1 % (0.0-3.0); HEMATOCRIT 39.8 % (42.0-52.0); HEMOGLOBIN 12.5 g/dl (13.5-17.5); LYMPH # 0.5 10^3/uL (1.5-5.0); LYMPH % 2.7 % (24.0-44.0); MEAN CORPUSCULAR HEMOGLOBIN 26.5 pg (27.0-33.0); MEAN CORPUSCULAR HGB CONC 31.4 g/dl (32.0-36.5); MEAN CORPUSCULAR VOLUME 84.5 fl (80.0-96.0); MONO # 0.4 10^3/uL (0.0-0.8); MONO % 2.5 % (2.0-8.0); NEUTROPHILS # 15.8 10^3/uL (1.5-8.5); NEUTROPHILS % 93.7 % (36.0-66.0); PLATELET COUNT, AUTOMATED 590 10^3/uL (150-450); RED BLOOD COUNT 4.71 10^6/uL (4.30-6.10); WHITE BLOOD COUNT 16.9 10^3/uL (4.0-10.0)
[2022-12-15 18:04] LABS: CK-MB VALUE MASS < 1.0 NG/ML (<3.6); LIPASE 23 U/L (12-53)
[2022-12-15 18:06] LABS: ALBUMIN 2.4 G/DL (3.2-5.2); ALKALINE PHOSPHATASE 114 U/L (46-116); ALT/SGPT 36 U/L (7.0-40); AST/SGOT 31 U/L (<34); BILIRUBIN,DIRECT 0.3 MG/DL (<0.4); BILIRUBIN,TOTAL 0.5 MG/DL (0.3-1.2); CPK CREATINE PHOSPHOKINASE 22 U/L (46-171); MB/CK RELATIVE INDEX 4.54 (< OR =4); TOTAL PROTEIN 6.3 G/DL (5.7-8.2)
[2022-12-15 18:08] LABS: FREE T4 1.24 NG/DL (0.89-1.76); THYROID STIMULATING HORMONE 1.589 uIU/ML (0.55-4.78)
[2022-12-15 18:10] LABS: INR 1.13; PROTHROMBIN TIME 14.7 SECONDS (12.5-14.5)
[2022-12-15 18:11] LABS: PARTIAL THROMBOPLASTIN TIME 32.2 SECONDS (24.8-34.2)
[2022-12-15] MEDS ORDERED: ISOVUE-370 76% 100ML VIAL As Ordered ONE (18:29)
[2022-12-15 19:02] LABS: ERYTHROCYTE SEDIMENTATION RATE 112 mm/hr (0-20)
[2022-12-15] MEDS ORDERED: VANCOMYCIN HCL 1,250 MG in IV FLUID PLACE HOLDER 1 EA IV ONE (19:40)
[2022-12-15] MEDS ORDERED: VANCOMYCIN HCL 750 MG, VIAL MATE ADAPTER 1 EACH in D5W 250 ML IV ONE (20:00)
[2022-12-15] MEDS ORDERED: ASPI81CH48 PO (20:51)
[2022-12-15] MEDS ORDERED: METO1TAB32 PO (20:53)
[2022-12-15] MEDS ORDERED: CLOP75TA2 PO (20:53)
[2022-12-15] MEDS ORDERED: ATOR40TA75 PO (20:53)
[2022-12-15] MEDS ORDERED: ALBU8.5H PO (20:53)
[2022-12-15] MEDS ORDERED: NITR0.4S14 SL (20:53)
[2022-12-15] MEDS ORDERED: HOME MED LIST COMPLETE! XX SCH (20:55)
[2022-12-15] MEDS ORDERED: VANCOMYCIN HCL 500 MG in D5W MINI-BAG PLUS 100 ML IV ONE (21:00)
[2022-12-15] MEDS ORDERED: ALBUTEROL 90 MCG/ACT 8GM HFA INHALER INH PRN (22:15)
[2022-12-15] MEDS ORDERED: ACETAMINOPHEN TAB 650MG DOSE (2X325MG) PO PRN (22:15)
[2022-12-15] MEDS ORDERED: NITROGLYCERIN 0.4MG SUBL TABLET SL PRN (22:15)
[2022-12-15] MEDS ORDERED: SODIUM CHLORIDE 0.9% 1000ML IV SCH (22:15)
[2022-12-15] MEDS ORDERED: HYDROMORPHONE HCL 0.5 MG/ 0.5 ML SYRINGE IV PRN (22:15)
[2022-12-15] MEDS ORDERED: NORCO, ANEXSIA 5/325MG TABLET (HYDROcodone/ACETAMINOPHEN) PO PRN (22:15)
[2022-12-15 22:25] VITALS: BP 108/45
[2022-12-16 05:57] VITALS: BP 112/47
[2022-12-16 06:48] LABS: BLOOD UREA NITROGEN 14 MG/DL (9-23); CALCIUM LEVEL 7.1 MG/DL (8.3-10.6); CARBON DIOXIDE LEVEL 28 MMOL/L (20-31); CHLORIDE LEVEL 106 MMOL/L (98-107); CREATININE FOR GFR 0.86 MG/DL (0.70-1.30); GLOMERULAR FILTRATION RATE > 60.0 (>42); GLUCOSE, FASTING 107 MG/DL (74-106); POTASSIUM SERUM 4.1 MMOL/L (3.5-5.1); SODIUM LEVEL 137 MMOL/L (136-145)
[2022-12-16 07:40] LABS: VANCOMYCIN RANDOM 9.2 UG/ML
[2022-12-16 07:59] LABS: BASO % 0.1 % (0.0-1.0); EOS % 0.1 % (0.0-3.0); HEMATOCRIT 30.1 % (42.0-52.0); LYMPH # 0.7 10^3/uL (1.5-5.0); LYMPH % 4.9 % (24.0-44.0); MEAN CORPUSCULAR HEMOGLOBIN 27.3 pg (27.0-33.0); MEAN CORPUSCULAR HGB CONC 31.9 g/dl (32.0-36.5); MEAN CORPUSCULAR VOLUME 85.5 fl (80.0-96.0); MONO # 0.5 10^3/uL (0.0-0.8); MONO % 3.6 % (2.0-8.0); NEUTROPHILS # 13.1 10^3/uL (1.5-8.5); NEUTROPHILS % 90.1 % (36.0-66.0); PLATELET COUNT, AUTOMATED 435 10^3/uL (150-450); RED BLOOD COUNT 3.52 10^6/uL (4.30-6.10); WHITE BLOOD COUNT 14.6 10^3/uL (4.0-10.0)
[2022-12-16] MEDS ORDERED: VANCOMYCIN HCL 500 MG in D5W MINI-BAG PLUS 100 ML IV SCH (08:00)
[2022-12-16 08:21] VITALS: BP 117/49
[2022-12-16 08:21] LABS: HEMOGLOBIN 9.6 g/dl (13.5-17.5)
[2022-12-16] MEDS: METOPROLOL SUCC *XL* 25MG TAB (TopROL *XL*) PO SCH (09:00)
[2022-12-16] MEDS ORDERED: VANCOMYCIN HCL 1,000 MG, VIAL MATE ADAPTER 1 EACH in NS 250 ML IV SCH (09:00)
[2022-12-16] MEDS ORDERED: LIDOCAINE 1% MDV 20ML VIAL As Ordered ONE (09:44)
[2022-12-16] MEDS: ENOXAPARIN 60MG/0.6ML SYRINGE (J1650 PER 10MG) SC SCH ×2 (13:26→21:06)
[2022-12-16 14:00] VITALS: BP 118/50
[2022-12-16] MEDS: cefTRIAXone SOD 2 GM in D5W MINI-BAG PLUS 50 ML IV SCH (17:25)
[2022-12-16] MEDS ORDERED: metroNIDAZOLE (FLAGYL) 500MG TABLET PO SCH (19:00)
[2022-12-16 19:46] VITALS: BP 120/52
[2022-12-16] MEDS: metroNIDAZOLE (FLAGYL) 500MG TABLET PO SCH (21:06)
[2022-12-16] MEDS: ATORVASTATIN 20 MG TAB PO SCH (21:06)
[2022-12-17] VITALS (7 sets, daily range): BP systolic 103–137; BP diastolic 50–71
[2022-12-17] MEDS: metroNIDAZOLE (FLAGYL) 500MG TABLET PO SCH ×3 (05:18→21:23)
[2022-12-17 05:56] LABS: HEMATOCRIT 30.6 % (42.0-52.0); HEMOGLOBIN 9.9 g/dl (13.5-17.5); MEAN CORPUSCULAR HEMOGLOBIN 27.1 pg (27.0-33.0); MEAN CORPUSCULAR HGB CONC 32.4 g/dl (32.0-36.5); MEAN CORPUSCULAR VOLUME 83.8 fl (80.0-96.0); PLATELET COUNT, AUTOMATED 436 10^3/uL (150-450); RED BLOOD COUNT 3.65 10^6/uL (4.30-6.10); WHITE BLOOD COUNT 8.9 10^3/uL (4.0-10.0)
[2022-12-17 06:25] LABS: BLOOD UREA NITROGEN 11 MG/DL (9-23); CALCIUM LEVEL 7.5 MG/DL (8.3-10.6); CARBON DIOXIDE LEVEL 26 MMOL/L (20-31); CHLORIDE LEVEL 105 MMOL/L (98-107); GLOMERULAR FILTRATION RATE > 60.0 (>42); GLUCOSE, FASTING 101 MG/DL (74-106); POTASSIUM SERUM 3.8 MMOL/L (3.5-5.1); SODIUM LEVEL 136 MMOL/L (136-145)
[2022-12-17] MEDS: METOPROLOL SUCC *XL* 25MG TAB (TopROL *XL*) PO SCH (08:23)
[2022-12-17] MEDS: ENOXAPARIN 60MG/0.6ML SYRINGE (J1650 PER 10MG) SC SCH (08:23)
[2022-12-17] MEDS: APIXABAN 5 MG TAB (ELIQUIS) PO SCH ×2 (12:00→22:25)
[2022-12-17] MEDS ORDERED: ONDANSETRON 4MG 2ML VIAL IV ONE (16:20)
[2022-12-17] MEDS ORDERED: METOCLOPRAMIDE INJ 10MG/2ML VIAL IV SCH (17:00)
[2022-12-17] MEDS: cefTRIAXone SOD 2 GM in D5W MINI-BAG PLUS 50 ML IV SCH (17:12)
[2022-12-17] MEDS: ATORVASTATIN 20 MG TAB PO SCH (21:24)
[2022-12-18 06:00] VITALS: BP 127/71
[2022-12-18] MEDS: metroNIDAZOLE (FLAGYL) 500MG TABLET PO SCH ×2 (06:41→13:19)
[2022-12-18] MEDS ORDERED: APIXABAN 5 MG TAB (ELIQUIS) PO SCH (09:00)
[2022-12-18] MEDS: METOPROLOL SUCC *XL* 25MG TAB (TopROL *XL*) PO SCH (09:00)
[2022-12-18] MEDS: APIXABAN 5 MG TAB (ELIQUIS) PO SCH (10:32)
[2022-12-18] MEDS ORDERED: ELIQ5TAB PO (11:03)
[2022-12-18] MEDS ORDERED: CEFD300C41 PO (11:03)
[2022-12-18] MEDS ORDERED: DOXY-444 PO (11:04)
[2022-12-18] MEDS ORDERED: METO1TAB32 PO (11:09)
[2022-12-18] MEDS ORDERED: DOXYCYCLINE HYCLATE 100MG TABLET PO SCH (12:00)
[2022-12-18 14:00] VITALS: BP 129/72
[2022-12-18] MEDS: cefTRIAXone SOD 2 GM in D5W MINI-BAG PLUS 50 ML IV SCH (17:35)
== END 2022-12-18 19:00 | disposition home or self-care (01) | DRG 871 ==
LOC: M ED 16:17 → EDBD 16:17 → M ED INP 21:21 → M MSPAV 22:30
PROVIDERS: ADMIT Internal Medicine; ATTEND Internal Medicine
PROC: 0H98X0Z Drainage of Buttock Skin with Drainage Device, External Approach (ICD-10-PCS; principal; 2022-12-16 09:00)
DX: A40.8 Other streptococcal sepsis (principal); G93.41 Metabolic encephalopathy; J18.9 Pneumonia, unspecified organism; L02.31 Cutaneous abscess of buttock; C49.9 Malignant neoplasm of connective and soft tissue, unspecified; L03.115 Cellulitis of right lower limb; J90 Pleural effusion, not elsewhere classified; R65.20 Severe sepsis without septic shock; I48.91 Unspecified atrial fibrillation; Z85.038 Personal history of other malignant neoplasm of large intestine; I25.2 Old myocardial infarction; Z79.899 Other long term (current) drug therapy; Z79.82 Long term (current) use of aspirin; Z88.0 Allergy status to penicillin; Z91.018 Allergy to other foods; Z66 Do not resuscitate

== ENCOUNTER → 2023-01-28 | Outpatient (REF) | payer MEDICARE ==
[~2023-01-28] MED LIST changes: +ALBU8.5H PO; +ASPI81CH48 PO; +ATOR40TA75 PO; +CEFD300C41 PO; +CLOP75TA2 PO; +DOXY-444 PO; +ELIQ5TAB PO; +METO1TAB32 PO; +NITR0.4S14 SL
[2023-01-28 12:07] LABS: CHOLESTEROL RISK RATIO 2.66 (<5); HDL CHOLESTEROL 33.8 MG/DL (>40); NON-HDL-C 56.2 MG/DL
== END ==
LOC: M SFHCCLAY 07:31
PROVIDERS: ATTEND Nurse Practitioner Family
DX: E78.2 Mixed hyperlipidemia (principal); E55.9 Vitamin D deficiency, unspecified; I21.4 Non-ST elevation (NSTEMI) myocardial infarction

== ENCOUNTER → 2023-01-30 | Outpatient (CLI) | payer MEDICARE ==
[~2023-01-30] MED LIST changes: +ISOVUE-370 76% 100ML VIAL ONE
== END ==
LOC: M PLAIMG 09:08
PROVIDERS: ATTEND Internal Medicine Medical Oncology
DX: L76.34 Postprocedural seroma of skin and subcutaneous tissue following other procedure (principal)
CPT/HCPCS: 71260; Q9967

== ENCOUNTER → 2024-03-12 | Outpatient (REF) | payer MEDICARE ==
[~2024-03-12] MED LIST changes: +CEFD1CAP9 PO; -CEFD300C41 PO; +DOXY-440 PO; -DOXY-444 PO; -ISOVUE-370 76% 100ML VIAL ONE
[2024-03-12 18:34] LABS: ALBUMIN 3.3 G/DL (3.2-5.2); ALKALINE PHOSPHATASE 61 U/L (46-116); ALT/SGPT 15 U/L (7.0-40); AST/SGOT 14 U/L (<34); BILIRUBIN,TOTAL 0.6 MG/DL (0.3-1.2); BLOOD UREA NITROGEN 16 MG/DL (9-23); CALCIUM LEVEL 8.9 MG/DL (8.3-10.6); CARBON DIOXIDE LEVEL 30 MMOL/L (20-31); CHLORIDE LEVEL 107 MMOL/L (98-107); CHOLESTEROL LEVEL 172 MG/DL (<200); CHOLESTEROL RISK RATIO 4.27 (<5); CREATININE FOR GFR 1.15 MG/DL (0.70-1.30); GLOMERULAR FILTRATION RATE > 60.0 (>35); GLUCOSE, FASTING 94 MG/DL (74-106); HDL CHOLESTEROL 40.2 MG/DL (>40); LDL CHOLESTEROL 112.4 MG/DL (<100); NON-HDL-C 131.8 MG/DL; POTASSIUM SERUM 4.7 MMOL/L (3.5-5.1); SODIUM LEVEL 141 MMOL/L (136-145); TOTAL PROTEIN 5.7 G/DL (5.7-8.2); TRIGLYCERIDES LEVEL 97 MG/DL (<150)
== END ==
LOC: M SFHCCLAY 09:18
PROVIDERS: ATTEND Nurse Practitioner Family
DX: I48.0 Paroxysmal atrial fibrillation (principal); G25.0 Essential tremor; R09.82 Postnasal drip; Z79.899 Other long term (current) drug therapy

== ENCOUNTER → 2024-12-30 | Outpatient (REF) | payer MEDICARE ==
[2024-12-30 19:02] LABS: ALBUMIN 3.4 G/DL (3.2-5.2); BILIRUBIN,TOTAL 0.6 MG/DL (0.3-1.2); CALCIUM LEVEL 9.4 MG/DL (8.3-10.6); CHOLESTEROL RISK RATIO 3.69 (<5); CREATININE FOR GFR 1.09 MG/DL (0.70-1.30); GLOMERULAR FILTRATION RATE 68.2 (>35); HDL CHOLESTEROL 50.4 MG/DL (>40); LDL CHOLESTEROL 115.4 MG/DL (<100); NON-HDL-C 135.6 MG/DL; POTASSIUM SERUM 4.6 MMOL/L (3.5-5.1); TOTAL PROTEIN 5.9 G/DL (5.7-8.2)
== END ==
LOC: M SFHCCLAY 09:09
PROVIDERS: ATTEND Nurse Practitioner Family
DX: I48.0 Paroxysmal atrial fibrillation (principal); G25.0 Essential tremor; E55.9 Vitamin D deficiency, unspecified; E78.2 Mixed hyperlipidemia